=== PATIENT | female | born 1965 ===

== ENCOUNTER 2017-07-31 13:17 | Emergency (ER) | payer BC ==
[2017-07-31 14:39] VITALS: BP 141/81
--- NOTE | 2017-07-31 15:11 | UC ---
Complaint Female HPI - HPI Summary HPI Summary: ONE DAY OF URINARY FREQUENCY, URGENCY, DISCOMFORT. NO FEVER. NO NEW BACK PAIN. NO ABDOMINAL PAIN. - History Of Current Complaint Chief Complaint: UCGU Stated Complaint: URINARY Time Seen by Provider: 07/31/17 14:50 Hx Obtained From: Patient Onset/Duration: Gradual Onset, Lasting Days Timing: Intermittent Severity Initially: Moderate Severity Currently: Moderate Character: Dull, Burning Aggravating Factor(s): Urination Associated Signs And Symptoms: Positive: Negative - Risk Factors Ectopic Risk Factor: Negative - Allergies/Home Medications Allergies/Adverse Reactions: Allergies Allergy/AdvReac Type Severity Reaction Status Date / Time Ibuprofen [From Motrin] Allergy SEVERE Verified 07/31/17 14:30 HEADACHE, VOMITING Morphine Allergy SEVERE Verified 07/31/17 14:30 HEADACHE, VOMITING Sulfa Antibiotics Allergy SEVERE Verified 07/31/17 14:30 HEADACHE, VOMITING PMH/Surg Hx/FS Hx/Imm Hx Previously Healthy: Yes - Surgical History Surgical History: Yes Surgery Procedure, Year, and Place: 1981 WISDOM TEETH EXTRACTION, [facility]. 1994 C SECTION, [facility]. 1995 LAPAROSCOPIC CHOLECYSTECTOMY, [facility]. 2006,2008, 210, VARICOSE VEIN SURGERY. 2012 BILATERAL VARICOSE VEIN SURGERY, [facility]. 2010 ENDOMETRIAL ABLATION, [facility]. 2014 COLONOSCOPY, [facility] - Family History Known Family History: Positive: Unknown Negative: Renal Disease - Social History Occupation: Employed Full-time Lives: With Family Alcohol Use: None Substance Use Type: None Smoking Status (MU): Never Smoked Tobacco - Immunization History Most Recent Influenza Vaccination: allergic to flu shot Hx Tetanus, Diphtheria Vaccination: Yes Vaccination Up to Date: Yes Review of Systems Constitutional: Negative Skin: Negative Eyes: Negative ENT: Negative Respiratory: Negative Cardiovascular: Negative Gastrointestinal: Negative Genitourinary: Dysuria, Hematuria, Frequency Motor: Negative Neurovascular: Negative Musculoskeletal: Negative Neurological: Negative Psychological: Negative Is Patient Immunocompromised?: No All Other Systems Reviewed And Are Negative: Yes Physical Exam Triage Information Reviewed: Yes Appearance: Well-Appearing, No Pain Distress, Well-Nourished Vital Signs: Initial Vital Signs Temp 98.3 F 07/31/17 14:33 Pulse 91 07/31/17 14:33 Resp 16 07/31/17 14:33 BP 141/81 07/31/17 14:33 Pulse Ox 100 07/31/17 14:33 Vital Signs Reviewed: Yes Eye Exam: Normal ENT Exam: Normal ENT: Positive: Normal ENT inspection Dental Exam: Normal Neck exam: Normal Neck: Positive: Supple, Nontender, No Lymphadenopathy Respiratory Exam: Normal Respiratory: Positive: Chest non-tender, Lungs clear, Normal breath sounds, No respiratory distress, No accessory muscle use Cardiovascular Exam: Normal Cardiovascular: Positive: RRR, No Murmur, Pulses Normal, Brisk Capillary Refill Abdominal Exam: Normal Abdomen Description: Positive: Nontender, No Organomegaly. Negative: CVA Tenderness (R), CVA Tenderness (L) Musculoskeletal Exam: Normal Neurological Exam: Normal Psychological Exam: Normal Skin Exam: Normal Complaint Female Dx - Differential Dx/Diagnosis Differential Diagnosis/HQI/PQRI: Sexually Transmitted Disease, Urinary Tract Infection Provider Diagnoses: URINARY TRACT INFECTION Discharge - Discharge Plan Condition: Stable Disposition: HOME Prescriptions: Cephalexin CAP* [Keflex CAP*] 500 mg PO TID #15 cap Fluconazole [Diflucan 150 MG (NF)] 150 mg PO ONCE #1 tab Phenazopyridine TAB* [Pyridium 100 mg TAB*] 100 mg PO TID PRN #15 tab PRN Reason: Pain Patient Education Materials: Urinary Tract Infection in Women (ED) Referrals: Amparo Ortiz MD [Primary Care Provider] -
--- OUTSIDE RECORDS SUMMARY | 2017-07-31 16:11 | XMS REPORT | Continuity of Care Document ---
:1965 Author Organization [facility] Care Team Providers Name Role Phone ZONIA VASQUEZ MD Primary Care Physician [phone] Insurance Providers Payer Name Policy Number Subscriber Name Relationship BLUE PPO [id number] DEBO SUAREZ SELF Problems No problem information available. Medications Current Home Medications Medication Dose Units Route Directions Days/Qty Instructions Start Date MARIANA Fluticasone Nasal Corea (Flonase) 0.05 MG/Actuation SPR Hydrochlorothiazide 25 MG ORAL ONCE DAILY (Esidrex,Oretic,Hydrodiur il) 25 MG TAB Hydrochlorothiazide (Hydrodiuril) 25 MG TAB Lisinopril (Prinivil) 10 10 MG ORAL ONCE DAILY MG TABLET Social History Problem Response Recorded Date Other substance/drug use N 07/31/17 Tobacco use within the past 12 months? N 02/28/11 Alcohol amt N 02/28/11 Hospital Discharge Instructions No hospital discharge instructions. Plan of Care No plan of care. Functional Status Query Response Date Recorded Do you get in and out of a chair: Independently February 28, 2011 1:11pm Do you bathe/dress: Independently February 28, 2011 1:11pm Adaptive devices: None February 28, 2011 1:11pm Living situation: Home with family February 28, 2011 1:11pm Allergies, Adverse Reactions, Alerts Allergen Type Severity Reaction Status Last Updated NSAIDS (Non-Steroidal Allergy Intermediate VOMITING, MIGRAINE Active 02/28 Anti-Inflamma Sulfa (Sulfonamide Allergy Intermediate VOMITING Active 02/28/11 Antibiotics) morphine AdvReac Intermediate VOMITING, MIGRAINE Active 02/28/11 ibuprofen AdvReac Unknown Active 02/26/07 ALLERGIES/REACTION Allergy Unknown Active 09/16/08 Immunizations Name Date Given Type Last Tetanus N/A Historical Vital Signs No Known Vital Signs Results. Results No known relevant diagnostic tests, laboratory data and/or discharge summary. Procedures No Known History of Procedures. Encounters Encounter Location Arrival/Admit Date Discharge/Depart Date Attending Provider Discharged Julian 07/09/17 4:00pm 07/30/[address] [facility] Discharged Julian 06/08/17 8:02am 06/30/[address] [facility]
== END 2017-07-31 15:14 | disposition home or self-care (01) ==
LOC: UCCORT 13:17
DX: N39.0 Urinary tract infection, site not specified (principal); B96.20 Unspecified Escherichia coli [E. coli] as the cause of diseases classified elsewhere; R31.9 Hematuria, unspecified; Z88.6 Allergy status to analgesic agent; Z88.5 Allergy status to narcotic agent; Z88.2 Allergy status to sulfonamides
CPT/HCPCS: 81003; 87077; 87086; 87186; 99212; G0463

== ENCOUNTER 2019-07-09 18:34 | Emergency (ER) | payer BC ==
--- OUTSIDE RECORDS SUMMARY | 2019-07-09 19:10 | XMS REPORT | Continuity of Care Document ---
:1965 External Reference #:[id number] Author Name Elidia Gavin MD, PHD Address [address] [facility], [address] [place] [address] Care Team Providers Name Role Phone Elidia Gavin MD, PHD - Family Care Team Information [facility] Problems Active Problems Provider Date Varicose veins of lower extremity Shanthi Blankenship MD Onset: 09/14/2012 Benign essential hypertension Shanthi Blankenship MD Onset: 09/10/2011 Hyperlipidemia Isabel Ngo, [facility] Onset: 02/24/2017 Localized, primary osteoarthritis Amparo Ortiz MD Onset: 03/23/2017 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/2017 region with myelopathy Obesity Amparo Ortiz MD Onset: 12/21/2017 Degeneration of lumbar intervertebral disc Elidia Gavin MD, PHD Onset: Snapping thumb syndrome Elidia Gavin MD, PHD Onset: 09/01/2018 Malaise and fatigue Elidia Gavin MD, PHD Onset: 10/19/2018 Chest pain Elidia Gavin MD, PHD Onset: 10/19/2018 Irritable bowel syndrome with diarrhea Elidia Gavin MD, PHD Onset: 2018 Right upper quadrant pain Elidia Gavin MD, PHD Onset: 01/21/2019 Migraine Elidia Gavin MD, PHD Onset: 01/21/2019 Polycystic ovary syndrome Elidia Gavin MD, PHD Onset: 02/21/2019 Postconcussion syndrome Elidia Gavin MD, PHD Onset: 02/21/2019 Encounter for examination and observation Elidia Gavin MD, PHD Onset: following work accident Nervous system symptoms Elidia Gavin MD, PHD Onset: 03/23/2019 Abnormal gait Elidia Gavin MD, PHD Onset: 03/23/2019 Fall on same level from slipping, tripping Elidia Gavin MD, PHD Onset: and stumbling with subsequent striking against unspecified object, subsequent encounter Neck pain Elidia Gavin MD, PHD Onset: 06/23/2019 Resolved Problems Neoplastic disease of uncertain behavior Elidia Gavin MD, PHD Onset: Resolved: 06/16/2019 Open wound of head without complication Elidia Gavin MD, PHD Onset: 02/21 Resolved: 06/16/2019 Social History Type Date Description Comments Sex Unknown Tobacco Use Start: Unknown Never Smoked Cigarettes ETOH Use Denies alcohol use Tobacco Use Start: Unknown Patient denies history of smoking Recreational Drug Use Denies Drug Use Smoking Status Reviewed: 06/20/19 Patient denies history of smoking Allergies, Adverse Reactions, Alerts Active Allergies Reaction Severity Comments Date Sulfa Drugs 03/16/2014 Morphine 03/16/2014 Ibuprofen headache 03/16/2014 Metronidazole rash Mild \\ 03/15/2018 Influenza B Virus Vaccine makes her ill 06/16/2019 B/[place]/ Antigen / Influenza Virus Vaccine, Live Attenuated, [id number] (H1N1) Strain / Influenza Virus Vaccine, Live Attenuated, [id number] (H3N2) Strain Lisinopril Cough, Diarrhea 06/16/2019 Medications Active Medications SIG Qnty Indications Ordering Date Provider Montelukast Sodium 1 tab by mouth 30tabs Leslye, 06/23/2019 10mg every day at MD Elidia, Tablets bedtime as needed PHD for allergies Methocarbamol 1 tabs by mouth 30tabs M54.2 Leslye, 06/23/2019 500mg at bedtime as MD Elidia, Tablets needed for muscle PHD spasm Nac 600 1 cap by mouth 90caps F41.9 Leslye, 06/16/2019 600mg Capsules three times a day MD Elidia, after meals PHD Spironolactone Take 1 Tablet By 90tabs I10 Leslye 05/24/2019 25mg Mouth Every MD Elidia, Tablets Morning PHD Fluticasone Propionate Shake Liquid And 48units Leslye, 05/05/2019 Use 1 [place] In MD Elidia, 50mcg/Act Suspension Each Nostril PHD Daily Co Q-10 Maximum 1 caps by mouth 90caps G43.909 Leslye, 04/25/2019 Strength every day MD Elidia, 400mg Capsules PHD Propranolol HCL ER 1 tab by mouth 180caps I10 Leslye, 01/21/2019 60mg twice a day MD Elidia, Caps ER 24HR PHD G43.909 K58.0 Desloratadine 1 by mouth every 90tabs Elidia Gavin MD, 11/05/2016 5mg Tablets day PHD Milk Thistle Extract 1 qd Shanthi Blankenship, 09/25/2014 140mg MD Capsules Carnislim 250 MG 1 tab po daily Unknown Ultimate Hair Strength 2 tab po hs Unknown [employer] Wellness 1 tab by mouth Unknown twice a day Excedrin Migraine prn Unknown [phone] Tablets Aspirin 1 by mouth every Unknown 325mg Tablets DR day [place] 3 2 by mouth every Unknown 1200mg Capsules day Potassium Chloride Jane ER Take 1/2 Tablet By 45tabs Elidia Gavin MD, 10Meq Mouth Every Day. PHD Tablets ER Maximum Daily Dose Is 1/2 Diosimn twice a day Shanthi Blankenship, Multi For Her 2 po qd Shanthi Blankenship, Capsules History Medications Meloxicam Take 1/2 Tablet 90tabs Ashia Swenson, 06/08/2019 - 15mg Tablets By Mouth Every MD 06/16/2019 Day With Food. If No Stomach Upset, Increase To 1 Tablet Every Day Magnesium Gluconate 1 tab by mouth 90tabs G43.909 Lselye, 04/25/2019 - every day MD Elidia, 05/17/2019 500mg Tablets PHD Amitriptyline HCL 1 tab by mouth 30tabs G43.909 Leslye, 04/25/2019 - 10mg every day MD Elidia, Unknown Tablets PHD Dulcolax 4 tablets taken a 4tabs Z86.010 Cande, 03/22/2019 - 5mg Tablets DR 8pm the day MD Arnaldo 04/25/2019 before the procedure Citroma drink 1 bottle at 296ml Z86.010 Cande, 03/22/2019 - 1.745GM/30ML 12pm (noon)the MD Arnaldo 04/25/2019 Solution day before the procedure Suprep Bowel Prep Kit one bottle at 354ml Z86.010 Cande, 03/22/2019 - night and one in MD Arnaldo 04/25/2019 17.5-3.13-1.6GM/177ML the morning Solution Augmented thin layer to 50gm L30.9 Leslye, 01/21/2019 - Betamethasone itchy areas twice MD Elidia, 02/18/2019 Dipropionate a day PHD 0.05% Cream Medications Administered in Office Medication SIG Qnty Indications Ordering Provider Date Depomedrol 40mg/1cc Isabel Ngo, 06/08/2019 (methylprednisolone acetate) RPAC Injection Betamethasone Acetate & Sodium Isabel Ngo SAdrian, 05/10/2019 Phosphate 3 MG Of Each RPAC Injection Depomedrol 40mg/1cc Isabel Ngo, 02/18/2019 (methylprednisolone acetate) RPAC Injection Depomedrol 40mg/1cc Isabel Ngo, 02/18/2019 (methylprednisolone acetate) RPAC Injection Depomedrol 40mg/1cc Isabel Ngo, 02/18/2019 (methylprednisolone acetate) RPAC Injection Depomedrol 40mg/1cc Isabel Ngo SAdrian, 02/18/2019 (methylprednisolone acetate) RPAC Injection Methylprednisolone acetate Isabel Ngo, 11/16/2018 (Depomedrol) 80mg injection RPAC Injection Betamethasone Acetate & Sodium Isabel Ngo, 09/15/2018 Phosphate 3 MG Of Each RPAC Injection Methylprednisolone acetate Isabel Ngo, 07/21/2018 (Depomedrol) 80mg injection RPAC Injection Depomedrol 40mg/1cc Isabel Ngo, 07/21/2018 (methylprednisolone acetate) RPAC Injection Methylprednisolone acetate Isabel Ngo, 04/19/2018 (Depomedrol) 80mg injection RPAC Injection Depomedrol 40mg/1cc Isabel Ngo, 04/19/2018 (methylprednisolone acetate) RPAC Injection Methylprednisolone acetate Isabel Ngo, 12/22/2017 (Depomedrol) 80mg injection RPAC Injection Depomedrol 40mg/1cc Isabel Ngo, 12/22/2017 (methylprednisolone acetate) RPAC Injection Methylprednisolone acetate Isabel Ngo, 09/25/2017 (Depomedrol) 80mg injection RPAC Injection Depomedrol 40mg/1cc Isaebl Ngo, 07/07/2017 (methylprednisolone acetate) RPAC Injection Depo-Medrol 20mg Isabel Ngo, 07/07/2017 Injection RPAC Methylprednisolone acetate Isabel Ngo, 05/27/2017 (Depomedrol) 80mg injection RPAC Injection Methylprednisolone acetate Isabel Ngo, 03/10/2017 (Depomedrol) 80mg injection RPAC Injection Methylprednisolone acetate Isabel Ngo, 02/24/2017 (Depomedrol) 80mg injection RPAC Injection Immunizations CPT Code Status Date Vaccine Lot # [id number] Given 12/21/2017 Tdap injection [id number] Given 09/19/2013 flu vaccination 21183 Given 05/01/2009 flu vaccination 52387 Given 07/10/2008 flu vaccination 42516 Given 06/29/2007 flu vaccination Vital Signs Date Vital Result Comment 06/23/2019 12:53pm BP Systolic 145 mmHg BP Diastolic 91 mmHg Body Temperature 98.3 F Heart Rate 77 /min Respiratory Rate 18 /min Height 62.5 inches 5'2.50" Weight 230.00 lb BMI (Body Mass Index) 41.4 kg/m2 BSA (Body Surface Area) 2.04 m2 [place] body weight in kilograms 51 kg O2 % BldC Oximetry 97 % 06/16/2019 2:09pm BP Systolic 160 mmHg BP Diastolic 95 mmHg Body Temperature 98.1 F Heart Rate 75 /min Respiratory Rate 16 /min Height 62.5 inches 5'2.50" Weight 231.00 lb BMI (Body Mass Index) 41.6 kg/m2 BSA (Body Surface Area) 2.04 m2 [place] body weight in kilograms 51 kg O2 % BldC Oximetry 97 % Results Test Date Facility Test Result H/L Range Note Laboratory test 04/02/2019 [facility] Sedimentation Rate 48 mm/hr High 2-45 1 , 2 finding [address] [place], [place] [address] [phone] C-Reactive Protein,Quant 4.3 mg/L High <3.0 Stool Fecal Fat QL 04/02/2019 [facility] Fats, Neutral Normal . 3 [address] [place], [place] [id number] [phone] Fats, Total Normal . 4 Stool Panel 04/02/2019 [facility] O&P Ova & Parasite Exam <pending> [address] [place] [address] [phone] C. Difficile Toxin B by PCR NEGATIVE Negative 5 Laboratory test 04/02/2019 [facility] Pancreatic 490.0 ug/g >200 6 finding [address] [facility] Elastase (Pe-1) [place], [place] [id number] [phone] Calprotectin, Fecal < 16 ug/g 0-120 7 Amylase 50 U/L Normal 25-115 Lipase 81 U/L Normal 56-289 Enteric 04/02/2019 [facility] Campylobacter SP NEGATIVE Negative Pathogens [address] [facility] PCR Panel, [place] [address] [phone] E. coli Stec PCR NEGATIVE Negative 8 Shigella Sp. PCR NEGATIVE Negative Salmonella Sp. PCR NEGATIVE Negative 9 Ova And 04/02/2019 [facility] Cryptosporidium, PCR NEGATIVE Negative Parasite [address] [facility] Screen, [place] [address] [phone] Giardia PCR NEGATIVE Negative 10 IBD Expanded Panel 04/02/2019 [facility] Julianna 23 units 0-[address] [place] [address] [phone] Acca 23 units 0-90 12 Alca 4 units 0-60 13 Amca 12 units 0-100 14 Atypical pANCA (IBD Exanded) Negative Negative Comments (IBD Expanded) . 15 1 R19.4 2 This result was obtained with an ESR method that is not based on the standard Westergren Method. When comparing results obtained from the traditional Westergren ESR and this method it is important to refer to the reference range for each method. Method: Capillary Photometry 3 Normal (<60 Droplets/HPF) 4 Normal (<100 Droplets/HPF) 5 A positive C. diff result does not necessarily indicate the presence of viable organisms. It does however indicate the presence of the tcdB gene and allows for presumptive detection of a Clostridium difficile toxigenic organism. As with all PCR-based in vitro diagnostic tests, extremely low levels of DNA below the limit of detection of the assay may produce a false negative result. METHOD: PCR 6 INFCE Result Units: ug Elast./g Severe Pancreatic Insufficiency: <100 Moderate Pancreatic Insufficiency: 100 - 200 Normal: >200 7 Concentration Interpretation Follow-Up <16 - 50 ug/g Normal None >50 -120 ug/g Borderline Re-evaluate in 4-6 weeks >120 ug/g Abnormal Repeat as clinically indicated Performed at: [address] [id number] [employer]: Martha Vincent MD, Phone: [phone] Performed at: [address] [id number] [employer]: Brandi Lamas MD, Phone: [phone] Shiga-toxin producing E. coli (STEC). 9 A positive result does not necessarily indicate the presence of viable organism. It does however, indicate the presence of DNA from Campylobacter sp., Salmonella sp., Shigella sp. and/or shiga toxin producing E. coli (STEC). Yersinia, Vibrio, Aeromonas and Plesiomonas are not routinely screened for and should be requested separately. Assay Limitations This assay detects only Campylobacter jejuni and Campylobacter coli and does not differentiate between the species. Other campylobacter species are not detected by the assay. The assay does not distinguish which Shiga toxin gene (stx1/stx2) is present in a specimen. The assay does not differentiate between Shigella sp., and enteroinvasive Escherichia coli (EIEC). As with all PCR-based in vitro diagnostic tests, extremely low levels of DNA below the analytical sensitivity of the assay may produce a false negative result. METHOD: PCR 10 NOTE: A positive result does not necessarily indicate the presence of viable organisms. It does however, indicate the presence of DNA from G. lamblia, C. parvum, C. hominis. This assay is intended to detect DNA from C. hominis and C. parvum without distinguishing between these two species. This test is not intended to detect DNA from other species of Cryptosporidium. As with all PCR-based in vitro diagnostic tests, levels of DNA present may be below the analytical sensitivity of the assay and therefore cause a false negative result. Method: PCR 11 Negative <45 Equivocal 45 - 50 Positive >50 12 Negative <80 Equivocal 80 - 90 Positive >90 13 Negative <55 Equivocal 55 - 60 Positive >60 14 Negative < 90 Equivocal 90 - 100 Positive >100 This test was developed and its performance characteristics determined by [employer]. It has not been cleared or approved by the Food and Drug Administration. The FDA has determined that such clearance or approval is not necessary. 15 Pattern is not suggestive of Inflammatory Bowel Disease Procedures Date Code Description Status 06/08/2019 20334 Radiology, Finger(S), Two Views Completed 06/08/2019 74048 Radiology, Finger(S), Two Views Completed 06/08/201956291 Asp./Injection major joint Completed 05/10/2019 Asp/Injection small joint/bursa (ie-fingers,toes) Completed 04/20/2019 77577 Colonoscopy With Biopsy Completed 04/20/2019 83090 Colonoscopy With Biopsy Completed 04/20/2019 36586 EGD With Biopsy Completed 04/20/2019 66716 EGD With Biopsy Completed 03/24/2019 08642 Eye Exam New Patient Comprehensive Completed 03/22/2019 95384 Anoscopy Completed 02/18/2019 74620 Radiology, Knee 3 Views Completed 02/18/2019 76262 Radiology, Knee 3 Views Completed 02/18/2019 79979 Radiology, Knee 3 Views Completed 02/18/201965032 Asp./Injection major joint Completed 02/18/201916530 Asp./Injection major joint Completed 02/18/201939091 Asp./Injection major joint Completed 01/21/2019 90397 Destruct-Skin Tags/Lesions-Local Anesthesia - First Completed Lesion 12/21/2017 [id number] Mammogram Completed 05/11/2014 65107475 Colonoscopy Completed Medical Devices Description No Information Available Encounters Type Date Location Provider Dx Diagnosis Office Visit 06/23/2019 Family Medicine Elidia Gavin, Z04.2 Encounter for exam 1:00p Kirk Tripathi MD, PHD and observation following work accident F07.81 Postconcussional syndrome W01.10xD Fall same lev from slip/trip w strike agnst unsp obj, subs M54.2 Cervicalgia M25.562 Pain in left knee M25.561 Pain in right knee Office Visit 06/16/2019 Family Fartun Gavin, F41.9 Anxiety disorder, 2:15p Kirk Brenner MD, unspecified PHD Office Visit 06/08/2019 Orthopaedic Ngo, M17.0 Bilateral primary 1:15p Office Isabel S., osteoarthritis of RPAC knee M25.561 Pain in right knee M25.562 Pain in left knee M25.541 Pain in joints of right hand M25.542 Pain in joints of left hand M18.0 Bilateral primary osteoarth of first carpometacarp joints Office Visit 05/24/2019 1:00p Family Fartun Gavin Z04.2 Encounter for exam Kirk Brenner MD, and observation PHD following work accident F07.81 Postconcussional syndrome M25.562 Pain in left knee M25.561 Pain in right knee W01.10xD Fall same lev from slip/trip w strike agnst unsp obj, subs I10 Essential (primary) hypertension Office Visit 05/17/2019 10:45a Arnaldo Allen MD R19.4 Change in bowel habit Z86.010 Personal history of colonic polyps R93.3 Abnormal findings on dx imaging of prt digestive tract Office Visit 04/25/2019 8:30a Family Fartun Gavin Z04.2 Encounter for exam Kirk Brenner MD, and observation PHD following work accident Z04.2 Encounter for exam and observation following work accident F07.81 Postconcussional syndrome F07.81 Postconcussional syndrome M25.562 Pain in left knee M25.562 Pain in left knee M25.561 Pain in right knee M25.561 Pain in right knee S01.91xA Laceration w/o foreign body of unsp part of head, init R19.4 Change in bowel habit G43.909 Migraine, unsp, not intractable, without status migrainosus E66.9 Obesity, unspecified M51.06 Intervertebral disc disorders with myelopathy, lumbar region M25.562 Pain in left knee G43.909 Migraine, unsp, not intractable, without status migrainosus Office Visit 03/23/2019 9:30a Lyly Pino04.2 Encounter for exam Kirk Brenner MD, and observation PHD following work accident Z04.2 Encounter for exam and observation following work accident F07.81 Postconcussional syndrome F07.81 Postconcussional syndrome W01.10xD Fall same lev from slip/trip w strike agnst unsp obj, subs W01.10xD Fall same lev from slip/trip w strike agnst unsp obj, subs R29.6 Repeated falls R29.6 Repeated falls I10 Essential (primary) hypertension K58.0 Irritable bowel syndrome with diarrhea R26.89 Other abnormalities of gait and mobility Office Visit 03/22/2019 8:45a GI Arnaldo Castellon MD R10.31 Right lower quadrant pain R10.32 Left lower quadrant pain R19.4 Change in bowel habit K64.0 First degree hemorrhoids Z86.010 Personal history of colonic polyps Office Visit 02/21/2019 9:30a Family Medicine Lyly Gavin04.2 Encounter for exam Kirk Brenner MD, and observation PHD following work accident Z04.2 Encounter for exam and observation following work accident S01.91xA Laceration w/o foreign body of unsp part of head, init S01.91xA Laceration w/o foreign body of unsp part of head, init F07.81 Postconcussional syndrome F07.81 Postconcussional syndrome I10 Essential (primary) hypertension I10 Essential (primary) hypertension Office Visit 01/21/2019 3:00p Family Medicine Leslye, 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 Brenner MD, uncertain PHD behavior, unspecified K58.0 Irritable bowel syndrome with diarrhea R10.11 Right upper quadrant pain I10 Essential (primary) hypertension G43.909 Migraine, unsp, not intractable, without status migrainosus L30.9 Dermatitis, unspecified Assessments Date Code Description Provider 06/23/2019 Z04.2 Encounter for examination and Elidia Gavin MD, PHD observation following work accident 06/23/2019 F07.81 Postconcussional syndrome Elidia Gavin MD, PHD 06/23/2019 W01.10xD Fall on same level from slipping, Elidia Gavin MD, PHD tripping and stumbling with subsequent striking against unspecified object, subsequent encounter 06/23/2019 M54.2 Cervicalgia Elidia Gavin MD, PHD 06/23/2019 M25.562 Pain in left knee Elidia Gavin MD, PHD 06/23/2019 M25.561 Pain in right knee Elidia Gavin MD, PHD 06/16/2019 F41.9 Anxiety disorder, unspecified Cuca Gasca, [facility] 06/16/2019 F41.9 Anxiety disorder, unspecified Elidia Gavin MD, PHD 06/08/2019 M17.0 Bilateral primary osteoarthritis of knee Ngo, Isabel S. , [facility] 06/08/2019 M25.561 Pain in right knee Ngo, Isabel S., [facility] 06/08/2019 M25.562 Pain in left knee Ngo, Isabel S., [facility] 06/08/2019 M25.541 Pain in joints of right hand Ngo, Isabel S., [facility] 06/08/2019 M25.542 Pain in joints of left hand Ngo, Isabel S., [facility] 06/08/2019 M18.0 Bilateral primary osteoarthritis of Ngo, Isabel S., [facility] first carpometacarpal joints 05/24/2019 Z04.2 Encounter for examination and Elidia Gavin MD, PHD observation following work accident 05/24/2019 F07.81 Postconcussional syndrome Elidia Gavin MD, PHD 05/24/2019 M25.562 Pain in left knee Elidia Gavin MD, PHD 05/24/2019 M25.561 Pain in right knee Elidia Gavin MD, PHD 05/24/2019 W01.10xD Fall on same level from slipping, Elidia Gavin MD, PHD tripping and stumbling with subsequent striking against unspecified object, subsequent encounter 05/24/2019 I10 Essential (primary) hypertension Elidia Gavin MD, PHD 05/17/2019 R19.4 Change in bowel habit Arnaldo Castellon MD 05/17/2019 Z86.010 Personal history of colonic polyps Arnaldo Castellon MD 05/17/2019 R93.3 Abnormal findings on diagnostic imaging Arnaldo Castellon MD of other parts of digestive tract 05/10/2019 M18.11 Unilateral primary osteoarthritis of Isabel Ngo, [facility] first carpometacarpal j 04/25/2019 Z04.2 Encounter for examination and Elidia Gavin MD, PHD observation following work accident 04/25/2019 Z04.2 Encounter for examination and Elidia Gavin MD, PHD observation following work accident 04/25/2019 F07.81 Postconcussional syndrome Elidia Gavin MD, PHD 04/25/2019 F07.81 Postconcussional syndrome Elidia Gavin MD, PHD 04/25/2019 M25.562 Pain in left knee Elidia Gavin MD, PHD 04/25/2019 M25.562 Pain in left knee Elidia Gavin MD, PHD 04/25/2019 M25.561 Pain in right knee Elidia Gavin MD, PHD 04/25/2019 M25.561 Pain in right knee Elidia Gavin MD, PHD 04/25/2019 S01.91xA Laceration without foreign body of Elidia Gavin MD, PHD unspecified part of head, 04/25/2019 R19.4 Change in bowel habit Elidia Gavin MD, PHD 04/25/2019 G43.909 Migraine, unspecified, not intractable, Elidia Gavin MD, PHD without status migra 04/25/2019 E66.9 Obesity, unspecified Elidia Gavin MD, PHD 04/25/2019 M51.06 Intervertebral disc disorders with Elidia Gavin MD, PHD myelopathy, lumbar region 04/25/2019 M25.562 Pain in left knee Elidia Gavin MD, PHD 04/25/2019 G43.909 Migraine, unspecified, not intractable, Elidia Gavin MD, PHD without status migrainosus 04/20/2019 K21.9 Gastro-esophageal reflux disease without Arnaldo Castellon MD esophagitis 04/20/2019 K57.30 Diverticulosis of large intestine Arnaldo Castellon MD without perforation or abscess without bleeding 04/20/2019 K31.7 Polyp of stomach and duodenum Arnaldo Castellon MD 04/20/2019 Z86.010 Personal history of colonic polyps Arnaldo Castellon MD 03/24/2019 F07.81 Postconcussional syndrome Arnaldo Loyd MD 03/24/2019 H04.123 Dry eye syndrome of bilateral lacrimal Arnaldo Loyd MD glands 03/23/2019 Z04.2 Encounter for examination and Elidia Gavin MD, PHD observation following work accident 03/23/2019 Z04.2 Encounter for examination and Elidia Gavin MD, PHD observation following work accident 03/23/2019 F07.81 Postconcussional syndrome Elidia Gavin MD, PHD 03/23/2019 F07.81 Postconcussional syndrome Elidia Gavin MD, PHD 03/23/2019 W01.10xD Fall on same level from slipping, Elidia Gavin MD, PHD tripping and stumbling with subsequent striking against unspecified object, subsequent encounter 03/23/2019 W01.10xD Fall on same level from slipping, Elidia Gavin MD, PHD tripping and stumbling with subsequent striking against unspecified object, subsequent encounter 03/23/2019 R29.6 Repeated falls Elidia Gavin MD, PHD 03/23/2019 R29.6 Repeated falls Elidia Gavin MD, PHD 03/23/2019 I10 Essential (primary) hypertension Elidia Gavin MD, PHD 03/23/2019 K58.0 Irritable bowel syndrome with diarrhea Elidia Gavin MD , PHD 03/23/2019 R26.89 Other abnormalities of gait and mobility Elidia Gavin MD, PHD 03/22/2019 R10.31 Right lower quadrant pain Arnaldo Castellon MD 03/22/2019 R10.32 Left lower quadrant pain Arnaldo Castellon MD 03/22/2019 R19.4 Change in bowel habit Arnaldo Castellon MD 03/22/2019 K64.0 First degree hemorrhoids Arnaldo Castellon MD 03/22/2019 Z86.010 Personal history of colonic polyps Arnaldo Castellon MD 02/21/2019 Z04.2 Encounter for examination and Elidia Gavin MD, PHD observation following work accident 02/21/2019 Z04.2 Encounter for examination and Elidia Gavin MD, PHD observation following work accident 02/21/2019 S01.91xA Laceration without foreign body of Elidia Gavin MD, PHD unspecified part of head, initial encounter 02/21/2019 S01.91xA Laceration without foreign body of Elidia Gavin MD, PHD unspecified part of head, 02/21/2019 F07.81 Postconcussional syndrome Elidia Gavin MD, PHD 02/21/2019 F07.81 Postconcussional syndrome Elidia Gavin MD, PHD 02/21/2019 I10 Essential (primary) hypertension Elidia Gavin MD, PHD 02/21/2019 I10 Essential (primary) hypertension Elidia Gavin MD, PHD 02/18/2019 M25.561 Pain in right knee Ashia Swenson MD 02/18/2019 M25.561 Pain in right knee Ngo, Isabel S., [facility] 02/18/2019 M25.561 Pain in right knee Ngo, Isabel S., [facility] 02/18/2019 M25.562 Pain in left knee Ngo, Isabel S., [facility] 02/18/2019 M25.562 Pain in left knee Ngo, Isabel S., [facility] 02/18/2019 M17.0 Bilateral primary osteoarthritis of knee Ngo, Isabel S. , [facility] 02/18/2019 M17.0 Bilateral primary osteoarthritis of knee Ngo, Isabel S. 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, Elidia Gavin MD, PHD unspecified 01/21/2019 K58.0 Irritable bowel syndrome with diarrhea Elidia Gavin MD , PHD 01/21/2019 R10.11 Right upper quadrant pain Elidia Gavin MD, PHD 01/21/2019 I10 Essential (primary) hypertension Elidia Gavin MD, PHD 01/21/2019 G43.909 Migraine, unspecified, not intractable, Elidia Gavin MD, PHD without status migra 01/21/2019 L30.9 Dermatitis, unspecified Elidia Gavin MD, PHD Plan of Treatment Future Appointment(s):08/22/2019 9:00 am - Isabel Ngo [facility] at Orthopaedic Office Functional Status Functional Condition Comment Date Status Glasses Active Mental Status Description No Information Available Referrals Refer to Reason for Referral Status Appt Date [facility], PT/OT/[facility] Patient Declined [address] [place] [address] [phone] Closed Arnaldo Loyd MD Post-concussion 1 month. Still having headaches. Closed Gets nauseated if reads for 30 min - with old reading glasses. Denies double vision. Please evaluate and recommend treatment. Has not done OT therapy yet. [address] [place] [address] [phone] [facility] @ [facility] Concussion from work comp injury Closed 2018 Medical - continuing daily headaches, face trauma, still nauseated if reads for 30 min, chronic back pain seeing [facility] and [facility]. Neck still sore. [address] [facility] [place] [id number] [phone] [facility] Recent fall at work seems to have Closed 2018 worsened lumbar herniated disk and radiculopathy. [address] [place] [address] [phone] Love Lomax MD pink lesion on face persisting for aprox 1 Closed 2018 year. Hx dermatitis. [facility] [address] [facility] [place] [address] [phone] Arnaldo Castellon MD Persistent RUQ pain and IBS-D - neg for celiac, Closed 03/22/2019 neg for h.pylori, H/o ishmael many years ago. Atopic. Tried eliminating dairy. [address] [facility] [address] [place] [address] [phone]
--- OUTSIDE RECORDS SUMMARY | 2019-07-09 19:10 | XMS REPORT | Continuity of Care Document ---
:1965 External Reference #:[id number] Author Name Elidia Gavin MD, PHD Address [address] [place] [address], [address] [place] [address] Care Team Providers Name Role Phone Elidia Gavin MD, PHD - Family Care Team Information [facility] Problems Active Problems Provider Date Varicose veins of lower extremity Shanthi Blankenship MD Onset: 09/14/2012 Benign essential hypertension Shanthi Blankenship MD Onset: 09/10/2011 Hyperlipidemia Isabel Ngo, [facility] Onset: 02/24/2017 Localized, primary osteoarthritis Amparo Ortiz MD Onset: 03/23/2017 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/2017 region with myelopathy Hypokalemia Amparo Ortiz MD Onset: 03/23/2017 Acute upper respiratory infection, Amparo Ortiz MD Onset: 05/21/2017 unspecified Acute vaginitis Amparo Ortiz MD Onset: 12/21/2017 Obesity Amparo Ortiz MD Onset: 12/21/2017 Right lower quadrant pain Amparo Ortiz MD Onset: 12/21/2017 Degeneration of lumbar intervertebral disc Elidia Gavin MD, PHD Onset: Disorder of gallbladder Elidia Gavin MD, PHD Onset: 03/11/2018 Vaginitis Elidia Gavin MD, PHD Onset: 03/11/2018 Allergic urticaria Elidia Gavin MD, PHD Onset: 05/26/2018 Contact dermatitis Elidia Gavin MD, PHD Onset: 05/26/2018 Snapping thumb syndrome Elidia Gavin MD, PHD Onset: 09/01/2018 Epigastric pain Elidia Gavin MD, PHD Onset: 10/19/2018 Malaise and fatigue Elidia Gavin MD, PHD Onset: 10/19/2018 Chest pain Elidia Gavin MD, PHD Onset: 10/19/2018 Irritable bowel syndrome with diarrhea Elidia Gavin MD, PHD Onset: 2018 Neoplastic disease of uncertain behavior Elidia Gavin MD, PHD Onset: Right upper quadrant pain Elidia Gavin MD, PHD Onset: 01/21/2019 Migraine Elidia Gavin MD, PHD Onset: 01/21/2019 Polycystic ovary syndrome Elidia Gavin MD, PHD Onset: 02/21/2019 Open wound of head without complication Elidia Gavin MD, PHD Onset: 02/21 Postconcussion syndrome Elidia Gavin MD, PHD Onset: 02/21/2019 Encounter for examination and observation Elidia Gavin MD, PHD Onset: following work accident Nervous system symptoms Elidia Gavin MD, PHD Onset: 03/23/2019 Abnormal gait Elidia Gavin MD, PHD Onset: 03/23/2019 Fall on same level from slipping, tripping Elidia Gavin MD, PHD Onset: and stumbling with subsequent striking against unspecified object, subsequent encounter Social History Type Date Description Comments Sex Unknown Tobacco Use Start: Unknown Never Smoked Cigarettes ETOH Use Denies alcohol use Tobacco Use Start: Unknown Patient denies history of smoking Recreational Drug Use Denies Drug Use Smoking Status Reviewed: 05/24/19 Patient denies history of smoking Allergies, Adverse Reactions, Alerts Active Allergies Reaction Severity Comments Date Sulfa Drugs 03/16/2014 Morphine 03/16/2014 Ibuprofen 03/16/2014 Metronidazole rash Mild \\ 03/15/2018 Medications Active Medications SIG Qnty Indications Ordering Date Provider Spironolactone 1 by mouth 30tabs I10 Elidia Gavin, 05/24/2019 25mg Tablets every morning , PHD Fluticasone Propionate Shake Liquid 48units Elidia Gavin, 05/05/2019 And Use 1 [place] MD PHD 50mcg/Act Suspension In Each Nostril Daily Co Q-10 Maximum 1 caps by mouth 90caps G43.909 Elidia Gavin, 04/25/2019 Strength every day , PHD 400mg Capsules Propranolol HCL ER 1 tab by mouth 180caps I10 Elidia Gavin, 01/21/2019 60mg twice a day PHD EFREM Caps ER 24HR G43.909 K58.0 Desloratadine 1 by mouth every 90tabs Elidia Gavin MD, 11/05/2016 5mg Tablets day PHD Milk Thistle Extract 1 qd Shanthi Blankenship, 09/25/2014 140mg MD Capsules Carnislim 250 MG 1 tab po daily Unknown Ultimate Hair Strength 2 tab po hs Unknown Ultimate [employer] [facility] 1 tab by mouth Unknown twice a day Excedrin Migraine prn Unknown [id number] Tablets Aspirin 1 by mouth every Unknown 325mg Tablets DR day Coker 3 2 by mouth every Unknown 1200mg Capsules day Potassium Chloride Jane ER Take 1/2 Tablet By 45tabs Elidia Gavin MD, 10Meq Mouth Every Day. PHD Tablets ER Maximum Daily Dose Is 1/2 Diosimn twice a day Shanthi Blankenship, Multi For Her 2 po qd Shanthi Blankenship, Capsules History Medications Magnesium Gluconate 1 tab by mouth 90tabs G43.909 Leslye, 04/25/2019 - every day MD Elidia, 05/17/2019 [...] Medication SIG Qnty Indications Ordering Provider Date Betamethasone Acetate & Sodium Isabel Ngo SAdrian, 05/10/2019 Phosphate 3 MG Of Each RPAC Injection Depomedrol 40mg/1cc Isabel Ngo S., 02/18/2019 (methylprednisolone acetate) RPAC Injection Depomedrol 40mg/1cc Isabel Ngo S., 02/18/2019 (methylprednisolone acetate) RPAC Injection Depomedrol 40mg/1cc Isabel Ngo S., 02/18/2019 (methylprednisolone acetate) RPAC Injection Depomedrol 40mg/1cc Isabel Ngo SAdrian, 02/18/2019 (methylprednisolone acetate) RPAC Injection Methylprednisolone acetate Isabel Ngo S., 11/16/2018 (Depomedrol) 80mg injection RPAC Injection Betamethasone Acetate & Sodium Isabel Ngo S., 09/15/2018 Phosphate 3 MG Of Each RPAC Injection Methylprednisolone acetate Isabel Ngo S., 07/21/2018 (Depomedrol) 80mg injection RPAC Injection Depomedrol 40mg/1cc Isabel Ngo S., 07/21/2018 (methylprednisolone acetate) RPAC Injection Methylprednisolone acetate Isabel Ngo S., 04/19/2018 (Depomedrol) 80mg injection RPAC Injection Depomedrol 40mg/1cc Isabel Ngo S., 04/19/2018 (methylprednisolone acetate) RPAC Injection Methylprednisolone acetate Isabel Ngo S., 12/22/2017 (Depomedrol) 80mg injection RPAC Injection Depomedrol 40mg/1cc Isabel gNo S., 12/22/2017 (methylprednisolone acetate) RPAC Injection Methylprednisolone acetate Isabel Ngo SAdrian, 09/25/2017 (Depomedrol) 80mg injection RPAC Injection Depomedrol 40mg/1cc NgoIsabel bang, 07/07/2017 (methylprednisolone acetate) RPAC Injection Depo-Medrol 20mg Isabel Ngo., 07/07/2017 Injection RPAC Methylprednisolone acetate NgoIsabel bang, 05/27/2017 (Depomedrol) 80mg injection RPAC Injection Methylprednisolone acetate NgoIsabel bang, 03/10/2017 (Depomedrol) 80mg injection RPAC Injection Methylprednisolone acetate Isabel Ngo, 02/24/2017 (Depomedrol) 80mg injection RPAC Injection Immunizations CPT Code Status Date Vaccine Lot # [id number] Given 12/21/2017 Tdap injection [id number] Given 09/19/2013 flu vaccination 56387 Given 05/01/2009 flu vaccination 23077 Given 07/10/2008 flu vaccination 13033 Given 06/29/2007 flu vaccination Vital Signs Date Vital Result Comment 05/24/2019 12:57pm BP Systolic 151 mmHg BP Diastolic 85 mmHg Body Temperature 98.1 F Heart Rate 62 /min Respiratory Rate 18 /min Height 62.5 inches 5'2.50" Weight 235.00 lb BMI (Body Mass Index) 42.3 kg/m2 BSA (Body Surface Area) 2.06 m2 [place] body weight in kilograms 51 kg O2 % BldC Oximetry 97 % 05/17/2019 11:14am BP Systolic Sitting Left Arm 146 mmHg BP Diastolic Sitting Left Arm 88 mmHg Body Temperature 99.8 F Heart Rate 73 /min Respiratory Rate 16 /min Height 62.5 inches 5'2.50" Weight 232.00 lb BMI (Body Mass Index) 41.8 kg/m2 BSA (Body Surface Area) 2.05 m2 [place] body weight in kilograms 51 kg O2 % BldC Oximetry 97 % Ra Results Test Date Facility Test Result H/L Range Note Laboratory test 04/02/2019 [facility] Sedimentation Rate 48 mm/hr High 2-45 1 , 2 finding [address] [place], [place] [id number] [phone] C-Reactive Protein,Quant 4.3 mg/L High <3.0 Stool Fecal Fat QL 04/02/2019 [facility] Fats, Neutral Normal . 3 [address] [place], [place] [id number] [phone] Fats, Total Normal . 4 Stool Panel 04/02/2019 [facility] O&P Ova & Parasite Exam <pending> [address] [place], [place] [id number] [phone] C. Difficile Toxin B by PCR NEGATIVE Negative 5 Laboratory test 04/02/2019 [facility] Pancreatic 490.0 ug/g >200 [address] Elastase (Pe-1) [place], [place] [address] [phone] Calprotectin, Fecal < 16 ug/g 0-120 7 Amylase 50 U/L Normal 25-115 Lipase 81 U/L Normal 56-289 Enteric 04/02/2019 [facility] Campylobacter SP NEGATIVE Negative Pathogens [address] PCR Panel, [place] [address] [phone] E. coli Stec PCR NEGATIVE Negative 8 Shigella Sp. PCR NEGATIVE Negative Salmonella Sp. PCR NEGATIVE Negative 9 Ova And 04/02/2019 [facility] Cryptosporidium, PCR NEGATIVE Negative Parasite [address] Screen, [place] [address] [phone] Giardia PCR NEGATIVE Negative 10 IBD Expanded Panel 04/02/2019 [facility] Julianna 23 units 0-[address] [place], [place] [address] [phone] Acca 23 units 0-90 12 Alca 4 [...] Abnormal Repeat as clinically indicated Performed at: [address] [id number] Business Manager: Martha Vincent MD, Phone: [phone] Performed at: [address] [id number] Business Manager: Brandi Lamas MD, Phone: [phone] Shiga-toxin producing E. coli (STEC). 9 [...] developed and its performance characteristics determined by [facility]. It has not been cleared or approved by the Food and Drug Administration. The FDA has determined that such clearance or approval is not necessary. 15 Pattern is not suggestive of Inflammatory Bowel Disease Procedures Date Code Description Status 05/10/201977345 Asp/Injection small joint/bursa (ie-fingers,toes) Completed 04/20/2019 13949 Colonoscopy With Biopsy Completed 04/20/2019 64633 Colonoscopy With Biopsy Completed 04/20/2019 80020 EGD With Biopsy Completed 04/20/2019 72914 EGD With Biopsy Completed 03/24/2019 30337 Eye Exam New Patient Comprehensive Completed 03/22/2019 15544 Anoscopy Completed 02/18/2019 32417 Radiology, Knee 3 Views Completed 02/18/2019 59373 Radiology, Knee 3 Views Completed 02/18/201975044 Asp./Injection major joint Completed 02/18/201962981 Asp./Injection major joint Completed 02/18/201955853 Asp./Injection major joint Completed 02/18/201962475 Asp./Injection major joint Completed 01/21/2019 92093 Destruct-Skin Tags/Lesions-Local Anesthesia - First Completed Lesion 12/21/2017 34823054 Mammogram Completed 05/11/2014 65972918 Colonoscopy Completed Medical Devices Description No Information Available Encounters Type Date Location Provider Dx Diagnosis Office Visit 05/17/2019 GI Arnaldo Castellon MD R19.4 Change in bowel habit 10:45a Z86.010 Personal history of colonic polyps R93.3 Abnormal findings on dx imaging of prt digestive tract Office Visit 04/25/2019 8:30a Family Medicine Leslye, Z04.2 Encounter for exam [facility] MD Elidia, and observation PHD following work accident Z04.2 [...] without status migrainosus Office Visit 03/23/2019 9:30a Family Medicine Lyly Gavin04.2 Encounter for [...] Dermatitis, unspecified Assessments Date Code Description Provider 05/24/2019 Z04.2 Encounter for examination and Elidia [...] PHD 05/17/2019 R19.4 Change in bowel habit Arnalod Castellon MD 05/17/2019 Z86.010 Personal history of colonic polyps Arnaldo Castellon MD 05/17/2019 R93.3 Abnormal findings on diagnostic imaging Arnaldo Castellon MD of other parts of digestive tract 05/10/2019 M18.11 Unilateral primary osteoarthritis of Jeni Isabel JeromeAdrian, [facility] first carpometacarpal j 04/25/2019 Z04.2 Encounter [...] PHD 04/25/2019 M25.562 Pain in left knee Eldiia Gavin MD, PHD 04/25/2019 M25.561 Pain in [...] PHD 02/18/2019 M25.561 Pain in right knee Isabel Ngo., [facility] 02/18/2019 M25.561 Pain in right knee NgoIsabel bang S., [facility] 02/18/2019 M25.562 Pain in left knee Isabel Ngo S., [facility] 02/18/2019 M25.562 Pain in left knee Isabel Ngo S., [facility] 02/18/2019 M17.0 Bilateral primary osteoarthritis of knee Isabel Ngo , [facility] 02/18/2019 M17.0 Bilateral primary osteoarthritis of knee Isabel Ngo S. , [facility] 02/18/2019 M17.0 Bilateral primary osteoarthritis of knee Isabel Ngo. 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, [...] Gavin MD, PHD Plan of Treatment Future Appointment(s):06/27/2019 2:15 pm - Arnaldo Loyd MD at [facility]/ 24/2019 - Elidia Gavin MD, PHDZ04.2 Encounter for examination and observation following work liqfuobwS75.81 Postconcussional syndromeReferral:[facility] , PT/OT/OPTICAL SYSTEMS ENGINEER/[address],Follow up:Follow up in 4 weeks or sooner if needed.M25.562 Pain in left kneeM25.561 Pain in right kneeW01.10xD Fall on same level from slipping, tripping and stumbling with subsequent striking against unspecified object, subsequent [id number] Essential (primary) hypertensionNew Medication:Spironolactone 25 mg - 1 by mouth every morningComments:PRESSURE POINTS1 What high blood pressure is. Blood pressure is the force that your blood exerts onthe middleton of the arteries it flows through, just like water flowing through a garden hose pushes against the hose??s middleton. Your blood pressure consists of two numbers. ??Systolic is the pressure on blood vessel middleton during heart beats,?? says José Miguel Carnes, professor of cardiovascular disease prevention at the [employer]. ?? Diastolic is the pressure between beats,?? so it??s lower. When people have high blood pressure??also called hypertension??it??s often because blood vessels are too rigid to expand when the heart pumps. It??s as though the hose were made of glass instead of rubber. 2 Everyone is at risk. Why worry about high blood pressure if you haven??t been diagnosed with it? Because, odds are, you eventually will be. ??Over time, 90 percent of people in this country develop hypertension,?? says Daryl Kim, professor of preventive medicine at the [employer]. That??s because blood pressure typically creeps up as youage. In the Atherosclerosis Risk in Communities study, which followed more than 15,000 Americans aged 45 to 64, average systolic blood pressure kelly by five points in five years.1 ??Blood pressures drift upward as people get older and they??re exposed to long-term excess sodium,?? explains Julio. ??That??s why almost all adults are going to get blood pressures that put them at higher risk for heart disease and stroke.? ? But most hypertension is preventable with a healthy diet and exercise, he adds.3 Your risk starts to rise at any blood pressure above ??normal.?? Doctors used to diagnose patientswith hypertension when their systolic pressure reached NORMAL BLOOD PRESSURE <120/<80 * Recommendations: Healthy lifestyle choices and yearly checks.ELEVATED BLOOD PRESSURE 120-129/<80 * Recommendations: Healthy lifestyle changes, reassessed in 3-6 months.HIGH BLOOD PRESSURE / STAGE 1 130-139/80-89 * Recommendations: 10-year heart disease and stroke risk assessment. If less than 10% risk, lifestyle changes, reassessed in 3-6 months. If higher, lifestyle changes and medication with monthly follow-ups until blood pressure is controlled. HIGH BLOOD PRESSURE / STAGE 2 >140/> 90 * Recommendations: Lifestyle changes and 2 different classes of medicine, with monthly follow-ups until blood pressure is controlled.How much diet and exercise can lower your blood pressure Got high blood pressure? You??re in good company.Nearly half of [place] adults now have hypertension, according to recent guidelines from the [place] [employer] and the [place] [employer].That means that many people who had ??prehypertension?? according to the old guidelines now have ??stage 1 hypertension.?? Most of them don??t need to start taking drugs to lower their pressure (that depends on other risk factors). Instead, the guidelines recommend a healthy lifestyle.Why? Because it works. Here??s how much your systolic pressure (the higher of your two blood pressure numbers) could fall with diet and exercise, according to the new guidelines:1. Eat a DASH diet: 11 pointsDon??t want to count servings?Start by filling half your plate with fruits and vegetables.A DASH-style diet does it all : protects your heart, piles on the fruits and veggies, and cuts unhealthy carbs. It??s not only low in saturated fat, sugar, and salt, it??s also rich in nutrients like potassium, magnesium, calcium, and fiber.Plus, DASH works for omnivores or vegetarians.2. Exercise: 5 pointsAny kind of exercise helps.All formsof exercise will lower blood pressure, but the best evidence is for aerobic activity. Aim for 90 to 150 minutes a week of aerobics (brisk walking, biking, running, etc.) and/or resistance training (biceps curls, leg presses, etc.).If you??re starting with walking, here??s how to ramp up the intensity gradually.3. Lose weight: 5 pointsDropping extra pounds can lower your pressure.Losing excess weight helps lower blood pressure. Expect about a 1 point drop in systolic pressure for every 2 pounds you lose.4. Cut salt: 5 pointsMost sodium comes from packaged and restaurant foods that don??t even taste salty.To lower blood pressure, cut your sodium by 1,000 milligrams a day, ideally to 1,500 mg a day. Start with these seven foods.Bread. About 100 to 200 mg of sodium per slice is typical. [employer] and some other brands make it easy to stay at the low end.Cheese. Most types have 150 to 250 mg ofsodium per ounce. Try [place] Korean (just 40 to 60 mg) or fresh mozzarella (80 to 100 mg) or just 1 ??slim cut?? or ??thin?? slice of your favorite variety.Poultry. The salt solution that??s often added to rawchicken or turkey can add 120 mg of sodium to the poultry??s 80 mg of (naturally occurring) sodium. So avoid poultry with labels like ??Contains up to 15% of a solution.??Deli meats. Just 2 oz. can pile 500 to 700 mg of sodium on your sandwich. Get Boar??s Head??s ( or another brand??s) ??low-sodium?? meats that are sliced at the deli counter ( about 50 to 80 mg in 2 oz.).Soup. Most soups deliver 600 to 900 mg of sodium per cup. Try Imagine, [place], Dr. Ansari??s, Deepti??s Organic, or Brine Tank Separator Operator Marcos?? s ??Light in Sodium?? or ??Reduced Sodium?? soups instead (200 to 400 mg) .Pizza. You can easily get 1,000 mg of sodium in 2 slices. Go light on the cheese, and replace meat with veggies (not olives).Restaurant entre??es. Many pack 1,000 to 2,000 mg of sodium. Save half for later. And add a side salad or other veggies to boost potassium.5. Get more potassium: 4 to 5 pointsAnother reason to eat more vegetables: potassium.The goal: Get 3,500 to 5,000 milligrams of potassium a day. You??ll get the most bang for your calorie potter with fruits and vegetables. Some examples: Calories Potassium (mg):Baked potato with skin (1 small) 130 750 Beet greens (?? cup cooked) 20 650 Yellowfin tuna (4 oz. cooked) [id number] Sweet potato with skin (1 small) 130 540 Wild Coho salmon (4 oz. cooked) 160 490 Spinach (?? cupcooked) 20 420 Banana (1) 110 420 Low-fat plain yogurt (6 oz.) 110 400 Fat-free milk (1 cup) 80 380 Cantaloupe (?? ) 50 370 Lentils (?? cup cooked) 120 370 Kaur beans (?? cup cooked) 120 370 Tomato sauce (?? cup) 30 360 Avocado (?? cup) 120 360 Spinach (2 cups raw) 10 340 Shelled edamame (?? cup cooked) 100 340 [place] or nectarine (1) 60 290 [place] sprouts (?? cup cooked) 30 250 [place] (1) 70 240 Ahsan lettuce (2 cups raw) 10 230 Apple (1) 100 200 6. Limit alcohol: 4 pointsLimiting alcohol helps keep your pressure in check.If you drink, stop at one drink a day for women or two for men.Find this article interesting and useful? Order a copy of Safe & Easy Steps to Lower Your Blood Pressure. Nine out of 10 Americans will eventually have high blood pressure and, with it, an increased risk of stroke, heart attack, diabetes, dementia, and more. Eating the right diet, losing weight, and exercising can keep your pressure under control. And, if you do have hypertension, it can lower your pressureas much as??or more than?? prescription drugs. This booklet, from the editors of [employer], shows you how. (48 pages)Dr. Gavin Can Print this out for you.The information in this post first appeared in [employer] Health[employer] in August 2017.WHAT WORKS? If you have high blood pressure, here??s roughly how much of a drop in systolic pressure you can expect from changes in diet and from exercise.Advice ~ What It Means ~ Typical Drop in Systolic Blood Pressure: Maintain a Normal Weight ~ Lose??or don??t gain??excess weight ~ 5 points for every 10 pounds you lose. Follow a DASH Diet ~ Eat a diet: ?? rich in vegetables & fruits ?? that includes whole grains, low-fat dairy, poultry, fish, beans, nuts, & oils ?? low in sugar & red meat ~ 11 pointsCut Sodium ~ Consume no more than 2,400??milligrams a day (1,500 mg a day lowers pressure even more)~ 5 pointsBoost Potassium ~ Shoot for 3,500 to 5,000 milligrams a day, mostly from fruits and vegetables ~ 4-5 pointsExercise ~ Doat least 30 minutes of aerobic activity (like brisk walking) most days of the week ~ 5 pointsLimitAlcohol ~ Men: No more than 2 drinks a day Women: No more than 1 drink a day ~ 4 points CHRONIC BLOOD PRESSURE IS GETTING WORSE BECAUSE OF WEIGHT GAIN AND PAIN FROM THE FALL AND CONCUSSION. 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 Still having headaches. Closed Gets nauseated if reads for 30 min - with old reading glasses. Denies double vision. Please evaluate and recommend treatment. Has not done OT therapy yet. [address] [place] [address] [phone] [facility] @ [facility] Concussion from work comp injury Closed 2018 Medical - continuing daily headaches, face trauma, still nauseated if reads for 30 min, chronic back pain seeing [facility]. Neck still sore. [address] [facility] [place] [address] [phone] [facility] Recent fall at work seems to have Closed 2018 worsened lumbar herniated disk and radiculopathy. [address] [place] [address] [phone] Love Lomax MD pink lesion on face persisting for aprox 1 Closed 2018 year. Hx dermatitis. [facility] [address] [facility] [place] [address] [phone] Arnaldo Castellon MD Persistent RUQ pain and IBS-D - neg for celiac, Closed 03/22/2019 neg for h.pylori, H/o ishmael many years ago. Atopic. Tried eliminating dairy. [address] [place] [address] [phone]
--- OUTSIDE RECORDS SUMMARY | 2019-07-09 19:10 | XMS REPORT | Continuity of Care Document ---
:1965 External Reference #:[id number] Author Name Arnaldo Loyd MD Address [address] [place] [address] Care Team Providers Name Role Phone Elidia Gavin MD, PHD - Family Care Team Information Director [employer] [phone] Medicine Problems Active Problems Provider Date Varicose veins of lower extremity Shanthi Blankenship MD Onset: 09/14/2012 Benign essential hypertension Shanthi Blankenship MD Onset: 09/10/2011 Hyperlipidemia Isabel Ngo, [facility] Onset: 02/24/2017 Localized, primary osteoarthritis Amparo [...] Use Denies Drug Use Smoking Status Reviewed: 06/27/19 Patient denies history of smoking Allergies, Adverse Reactions, Alerts Active Allergies Reaction Severity Comments Date Sulfa Drugs 03/16/2014 Morphine 03/16/2014 Ibuprofen headache 03/16/2014 Metronidazole rash Mild \\ 03/15/2018 Influenza B Virus Vaccine makes her ill 06/16/2019 B/[place]/ Antigen / Influenza Virus Vaccine, Live Attenuated, M-[id number]-8 (H1N1) Strain / Influenza Virus Vaccine, Live Attenuated, N-Hybkt-17-2009 (H3N2) Strain Lisinopril Cough, Diarrhea 06/16/2019 Medications Active Medications SIG Qnty Indications Ordering Date Provider Montelukast Sodium Take 1 Tablet By 90tabs Leslye, 06/23/2019 10mg Mouth Every Day MD Eildia, Tablets AT Bedtime as PHD Needed For Allergies Methocarbamol 1 tabs by mouth 30tabs M54.2 Leslye, 06/23/2019 500mg at bedtime as MD Elidia, Tablets needed for muscle PHD spasm Nac 600 1 cap by mouth 90caps F41.9 Leslye, 06/16/2019 600mg Capsules three times a day MD Elidia, after meals PHD Spironolactone Take 1 Tablet By 90tabs I10 Leslye, 05/24/2019 25mg Mouth Every MD Elidia, Tablets Morning PHD Fluticasone Propionate Shake Liquid And 48units [place], 05/05/2019 Use 1 [place] In MD Elidia, 50mcg/Act Suspension Each Nostril PHD Daily Co Q-10 Maximum 1 caps by mouth 90caps G43.909 [place], 04/25/2019 Strength every day MD Elidia, 400mg [...] twice a day Excedrin Migraine prn Unknown [phone] Tablets Aspirin 1 by mouth every Unknown 325mg Tablets DR day Zwingle 3 2 by mouth every Unknown 1200mg [...] Ngo SAdrian, 02/18/2019 (methylprednisolone acetate) RPAC Injection Depomedrol 40mg/1cc Isabel Ngo S., 02/18/2019 (methylprednisolone acetate) RPAC Injection Depomedrol 40mg/1cc Isabel Ngo SAdrian, 02/18/2019 (methylprednisolone acetate) RPAC Injection Methylprednisolone acetate Isabel Ngo SAdrian, 11/16/2018 (Depomedrol) 80mg injection RPAC Injection Betamethasone Acetate & Sodium Isabel Ngo S., 09/15/2018 Phosphate 3 MG Of Each RPAC Injection Methylprednisolone acetate Isabel Ngo S., 07/21/2018 (Depomedrol) 80mg injection RPAC Injection Depomedrol 40mg/1cc Isabel Ngo S., 07/21/2018 (methylprednisolone acetate) RPAC Injection Methylprednisolone acetate Isabel Ngo SAdrian, 04/19/2018 (Depomedrol) 80mg injection RPAC Injection Depomedrol 40mg/1cc Isabel Ngo, 04/19/2018 (methylprednisolone acetate) RPAC Injection Methylprednisolone acetate Isabel Ngo, 12/22/2017 (Depomedrol) 80mg injection RPAC Injection Depomedrol 40mg/1cc Isabel Ngo, 12/22/2017 (methylprednisolone acetate) RPAC Injection Methylprednisolone acetate Isabel Ngo, 09/25/2017 (Depomedrol) 80mg injection RPAC Injection Depomedrol 40mg/1cc Isabel Ngo, 07/07/2017 (methylprednisolone acetate) RPAC Injection Depo-Medrol 20mg Isabel Ngo, 07/07/2017 Injection RPAC Methylprednisolone acetate Isabel Ngo, 05/27/2017 (Depomedrol) 80mg injection RPAC Injection Methylprednisolone acetate Isabel Ngo, 03/10/2017 (Depomedrol) 80mg injection RPAC Injection Methylprednisolone acetate Isaebl Ngo, 02/24/2017 (Depomedrol) 80mg injection RPAC Injection Immunizations CPT Code Status Date Vaccine Lot # 33706 Given 12/21/2017 Tdap injection [id number] 14054 Given 09/19/2013 flu vaccination 15860 Given 05/01/2009 flu vaccination 46288 Given 07/10/2008 flu vaccination 00242 Given 06/29/2007 flu vaccination Vital Signs Date Vital Result Comment 06/23/2019 12:53pm BP Systolic 145 mmHg BP Diastolic 91 mmHg Body Temperature 98.3 F Heart Rate 77 /min Respiratory Rate 18 /min Height 62.5 inches 5'2.50" Weight 230.00 lb BMI (Body Mass Index) 41.4 kg/m2 BSA (Body Surface Area) 2.04 m2 [place] body weight in kilograms 51 kg O2 % BldC Oximetry 97 % 06/16/2019 2:09pm BP Systolic 160 mmHg BP Diastolic 95 mmHg Body Temperature 98.1 F Heart Rate 75 /min Respiratory Rate 16 /min Height 62.5 inches 5'2.50" Weight 231.00 lb BMI (Body Mass Index) 41.6 kg/m2 BSA (Body Surface Area) 2.04 m2 [place] body weight in kilograms 51 kg O2 % BldC Oximetry 97 % Results Test Acquired Date Facility Test Result H/L Range Note Laboratory test 04/02/2019 [facility] Sedimentation Rate 48 mm/hr High 2-45 1 , [address] [place] [address] [phone] C-Reactive Protein,Quant 4.3 mg/L High <3.0 Stool Fecal Fat QL 04/02/2019 [facility] Fats, Neutral Normal . 3 [address] [place] [address] [phone] Fats, Total Normal . 4 Stool Panel 04/02/2019 [facility] O&P Ova & Parasite Exam <pending> [address] [place], [place] [id number] [phone] C. Difficile Toxin B by PCR NEGATIVE Negative 5 Laboratory test 04/02/2019 [facility] Pancreatic 490.0 ug/g >200 6 finding [address] [facility] Elastase (Pe-1) [place], [place] [id number] [phone] Calprotectin, Fecal < 16 ug/g 0-120 7 Amylase 50 U/L Normal 25-115 Lipase 81 U/L Normal 56-289 Enteric 04/02/2019 [facility] Campylobacter SP NEGATIVE Negative Pathogens [address] PCR Panel, [place] [address] [phone] E. coli Stec PCR NEGATIVE Negative 8 Shigella Sp. PCR NEGATIVE Negative Salmonella Sp. PCR NEGATIVE Negative 9 Ova And 04/02/2019 [facility] Cryptosporidium, PCR NEGATIVE Negative [facility]asite [address] [facility] [place] [address] [phone] Giardia PCR NEGATIVE Negative 10 IBD Expanded Panel 04/02/2019 [facility] Julianna 23 units 0-[address] [place], [place] [id number] [phone] Acca 23 units 0-90 12 Alca 4 [...] Abnormal Repeat as clinically indicated Performed at: [address] [id number] [facility]: Martha Vincent MD, Phone: [phone] Performed at: [address] [id number] [facility]: Brandi Lamas MD, Phone: [phone] 8 Shiga-toxin producing E. coli (STEC). 9 [...] developed and its performance characteristics determined by [employer]. It has not been cleared or approved by the Food and Drug Administration. The FDA has determined that such clearance or approval is not necessary. 15 Pattern is not suggestive of Inflammatory Bowel Disease Procedures Date Code Description Status 06/27/2019 91657 Visual Field Exam Extended, Unilateral Or Bilateral Completed 06/27/2019 21878 Eye Exam Est Patient Comprehensive Completed 06/08/2019 66515 Radiology, Finger(S), Two Views Completed 06/08/2019 46914 Radiology, Finger(S), Two Views Completed 06/08/201951639 Asp./Injection major joint Completed 05/10/201921012 Asp/Injection small joint/bursa (ie-fingers,toes) Completed 04/20/2019 86586 Colonoscopy With Biopsy Completed 04/20/2019 56917 Colonoscopy With Biopsy Completed 04/20/2019 81266 EGD With Biopsy Completed 04/20/2019 37709 EGD With Biopsy Completed 03/24/2019 12313 Eye Exam New Patient Comprehensive Completed 03/22/2019 51240 Anoscopy Completed 02/18/2019 53020 Radiology, Knee 3 Views Completed 02/18/2019 47077 Radiology, Knee 3 Views Completed 02/18/2019 34520 Radiology, Knee 3 Views Completed 02/18/201973644 Asp./Injection major joint Completed 02/18/201917510 Asp./Injection major joint Completed 02/18/201945451 Asp./Injection major joint Completed 01/21/2019 98996 Destruct-Skin Tags/Lesions-Local Anesthesia - First Completed Lesion 12/21/2017 87676045 Mammogram Completed 05/11/2014 21626530 Colonoscopy Completed Medical Devices Description No Information [...] in right knee Office Visit 06/16/2019 Family Medicine Leslye, F41.9 Anxiety disorder, 2:15p Kirk Brenner MD, unspecified PHD Office Visit 06/08/2019 Orthopaedic Ngo, M17.0 Bilateral primary 1:15p Office Isabel Marrufo, osteoarthritis of RPAC knee M25.561 Pain in right knee M25.562 Pain in left knee M25.541 Pain in joints of right hand M25.542 Pain in joints of left hand M18.0 Bilateral primary osteoarth of first carpometacarp joints Office Visit 05/24/2019 1:00p [facility] Fartun Gavin, Z04.2 Encounter for exam Kirk Brenner MD, [...] tract Office Visit 04/25/2019 8:30a Family Fartun Gavin, Z04.2 Encounter for exam Kirk Brenner MD, [...] Family Medicine Lyly Gavin04.2 Encounter for exam iKrk Brenner MD, and observation PHD following work [...] mobility Office Visit 03/22/2019 8:45a GI Arnaldo Catsellon MD R10.31 Right lower quadrant pain R10.32 [...] Dermatitis, unspecified Assessments Date Code Description Provider 06/27/2019 F07.81 Postconcussional syndrome Arnaldo oLyd MD 06/27/2019 H04.123 Dry eye syndrome of bilateral lacrimal Arnaldo Loyd MD glands 06/23/2019 Z04.2 Encounter for examination and Elidia [...] 06/16/2019 F41.9 Anxiety disorder, unspecified Cuca Gasca, [facility] 06/16/2019 F41.9 Anxiety disorder, unspecified Elidia Gavin MD, PHD 06/08/2019 M17.0 Bilateral primary osteoarthritis of knee Ngo, Isabel S. , [facility] 06/08/2019 M25.561 Pain in right knee Ngo, Isabel S., [facility] 06/08/2019 M25.562 Pain in left knee Ngo, Isabel S., [facility] 06/08/2019 M25.541 Pain in joints of right hand Ngo, Isabel S., [facility] 06/08/2019 M25.542 Pain in joints of left hand Ngo, Isabel S., [facility] 06/08/2019 M18.0 Bilateral primary osteoarthritis of Ngo, Isabel S., [facility] first carpometacarpal joints 05/24/2019 Z04.2 Encounter [...] M18.11 Unilateral primary osteoarthritis of Isabel Ngo, [facility] first carpometacarpal j 04/25/2019 Z04.2 Encounter [...] Pain in right knee Ngo, Isabel S., [facility] 02/18/2019 M25.561 Pain in right knee Ngo, Isabel S., [facility] 02/18/2019 M25.562 Pain in left knee Ngo, Isabel S., [facility] 02/18/2019 M25.562 Pain in left knee Ngo, Isabel S., [facility] 02/18/2019 M17.0 Bilateral primary osteoarthritis of knee Ngo, Isabel S. , [facility] 02/18/2019 M17.0 Bilateral primary osteoarthritis of knee Ngo, Isabel S. 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, [...] Gavin MD, PHD Plan of Treatment Future Appointment(s):07/02/2020 2:00 pm - Arnaldo Loyd MD at Nthqrmgzvfxnm15/ 21/2019 2:00 pm - Elidia Gavin MD, PHD at [facility]2018 9:00 am - Isabel Ngo, [facility] at Orthopaedic Xskxgt8606/27/2019 - Arnaldo Loyd MDF07.81 Postconcussional syndromeComments:- visual symptoms improved- you're doing a great job healing- visual field intact without suggestionof neurologic visual field loss; suggesting visual processing improved - working with concussion clinic: headache improved- no sign of optic neuropathy - no sign of orbital fracture- no sign of retinopathy- no ophthalmic signs of increased intracranial pressureFollow up:1 year examH04.123 Dry eye syndrome of bilateral lacrimal glandsComments:- warm compresses: can help to open up oil glands and stabilize the tear film- artificial tears botheyes: can use 4 times daily - can also use tears before performing activities while concentrating Functional Status Functional Condition Comment Date Status Glasses Active Mental Status Description No Information Available Referrals Refer to Reason for Referral Status Appt Date [facility], PT/OT/[facility]/[place] Patient Declined [address] [place] [id number] [phone] Closed Arnaldo Loyd MD Post-concussion 1 month. Still having headaches. Closed Gets nauseated if reads for 30 min - with old reading glasses. Denies double vision. Please evaluate and recommend treatment. Has not done OT therapy yet. [address] [place] [address] [phone] Concussion Clinic @ [facility] Concussion from work comp injury Closed 2018 Medical - continuing daily headaches, face trauma, still nauseated if reads for 30 min, chronic back pain seeing spine and wellness. Neck still sore. [address] [facility] [place] [address] [phone] [facility] Recent fall at work seems to have Closed 2018 worsened lumbar herniated disk and radiculopathy. [address] [place] [address] [phone] Love Lomax MD pink lesion on face persisting for aprox 1 Closed 2018 year. Hx dermatitis. [facility] [address] [facility] [place] [address] [phone] Arnaldo Castellon MD Persistent RUQ pain and IBS-D - neg for celiac, Closed 03/22/2019 neg for h.pylori, H/o ishmael many years ago. Atopic. Tried eliminating dairy. [address] [facility] [address] [place] [address] [phone]
--- OUTSIDE RECORDS SUMMARY | 2019-07-09 19:10 | XMS REPORT | Continuity of Care Document ---
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 Medicine Problems Active Problems Provider Date Varicose veins of lower extremity Shanthi Blankenship MD Onset: 09/14/2012 Benign essential hypertension Shanthi Blankenship MD Onset: 09/10/2011 Hyperlipidemia Isabel Ngo, [facility] Onset: 02/24/2017 Localized, primary osteoarthritis Amparo Ortiz [...] subsequent striking against unspecified object, subsequent encounter Resolved Problems Neoplastic disease of uncertain behavior [...] Use Denies Drug Use Smoking Status Reviewed: 06/16/19 Patient denies history of smoking Allergies, Adverse Reactions, Alerts Active Allergies Reaction Severity Comments Date Sulfa Drugs 03/16/2014 Morphine 03/16/2014 Ibuprofen headache 03/16/2014 Metronidazole rash Mild \\ 03/15/2018 Influenza B Virus Vaccine makes her ill 06/16/2019 B/[place]/ Antigen / Influenza Virus Vaccine, Live Attenuated, X-[id number]-0-2009 (H1N1) Strain / Influenza Virus Vaccine, Live Attenuated, H-Mwcji-96 (H3N2) Strain Lisinopril Cough, Diarrhea 06/16/2019 Medications Active Medications SIG Qnty Indications Ordering Date Provider Nac 600 1 cap by mouth 90caps F41.9 Elidia Gavin, 06/16/2019 600mg Capsules three times a MD PHD day after meals Spironolactone Take 1 Tablet 90tabs I10 Elidia Gavin, 05/24/2019 25mg Tablets By Mouth Every , PHD Morning Fluticasone Propionate Shake Liquid 48units Elidia Gavin, 05/05/2019 And Use 1 [place] MD PHD 50mcg/Act Suspension In Each Nostril Daily Co Q-10 Maximum 1 caps by mouth 90caps G43.909 Elidia Gavin, 04/25/2019 Strength every day MD, PHD 400mg Capsules Propranolol HCL ER 1 [...] twice a day Excedrin Migraine prn Unknown [phone] Tablets Aspirin 1 by mouth every Unknown 325mg Tablets DR day [place] 3 2 by mouth every Unknown 1200mg Capsules day Potassium Chloride Jane ER Take 1/2 Tablet By 45tabs Elidia Gavin MD, 10Meq Mouth Every Day. PHD Tablets ER Maximum Daily Dose Is 1/2 Diosimn twice a day Shanthi Blankenship, Multi For Her 2 po qd Shanthi Blankenship, Capsules History Medications Meloxicam Take 1/2 Tablet 90tabs Ashia Swenson, 06/08/2019 - 15mg Tablets By Mouth Manuel TOPETE 06/16/2019 Day With Food. If No Stomach Upset, Increase To 1 Tablet Every Day Magnesium Gluconate 1 tab by mouth 90tabs G43.909 Leslye, 04/25/2019 - every day MD Elidia, 05/17/2019 500mg Tablets PHD Amitriptyline HCL 1 tab by mouth 30tabs G43.909 Leslye, 04/25/2019 - 10mg every day MD Elidia, Unknown Tablets Dulcolax 4 tablets taken a 4tabs Z86.010 [...] Ngo S., 02/18/2019 (methylprednisolone acetate) RPAC Injection Methylprednisolone acetate [...] RPAC Injection Methylprednisolone acetate Isabel Ngo SAdrian, 12/22/2017 (Depomedrol) 80mg injection RPAC Injection Depomedrol 40mg/1cc Isabel Ngo S., 12/22/2017 (methylprednisolone acetate) RPAC Injection Methylprednisolone acetate Isabel Ngo Justus., 09/25/2017 (Depomedrol) 80mg injection RPAC Injection Depomedrol 40mg/1cc Ngo, Isabel S., 07/07/2017 (methylprednisolone acetate) RPAC Injection Depo-Medrol 20mg NgoIsabel bang, 07/07/2017 Injection RPAC Methylprednisolone acetate NgoIsabel bang, 05/27/2017 (Depomedrol) 80mg injection RPAC Injection Methylprednisolone acetate Ngo, Isabel S., 03/10/2017 (Depomedrol) 80mg injection RPAC Injection Methylprednisolone acetate Ngo, Isabel Yaron, 02/24/2017 (Depomedrol) 80mg injection RPAC Injection Immunizations CPT Code Status Date Vaccine Lot # [id number] Given 12/21/2017 Tdap injection [id number] Given 09/19/2013 flu vaccination 38614 Given 05/01/2009 flu vaccination 58837 Given 07/10/2008 flu vaccination 13213 Given 06/29/2007 flu vaccination Vital Signs Date Vital Result Comment 06/16/2019 2:09pm BP Systolic 160 mmHg BP Diastolic 95 mmHg Body Temperature 98.1 F Heart Rate 75 /min Respiratory Rate 16 /min Height 62.5 inches 5'2.50" Weight 231.00 lb BMI (Body Mass Index) 41.6 kg/m2 BSA (Body Surface Area) 2.04 m2 [place] body weight in kilograms 51 kg O2 % BldC Oximetry 97 % 06/08/2019 1:08pm BP Systolic 118 mmHg BP Diastolic 80 mmHg Body Temperature 96.9 F Heart Rate 89 /min Height 62.5 inches 5'2.50" Weight 233.00 lb BMI (Body Mass Index) 41.9 kg/m2 BSA (Body Surface Area) 2.05 m2 [place] body weight in kilograms 51 kg O2 % BldC Oximetry 98 % Results Test Date Facility Test Result H/L Range Note Laboratory test 04/02/2019 [facility] Sedimentation Rate 48 mm/hr High 2-45 1 , 2 finding [address] [place] [address] [phone] C-Reactive Protein,Quant 4.3 mg/L High <3.0 Stool Fecal Fat QL 04/02/2019 [facility] Fats, Neutral Normal . 3 [address] [place] [id number] [phone] Fats, Total Normal . 4 Stool Panel 04/02/2019 [facility] O&P Ova & Parasite Exam <pending> [address] [place], [place] [id number] [phone] C. Difficile Toxin B by PCR NEGATIVE Negative 5 Laboratory test 04/02/2019 [facility] Pancreatic 490.0 ug/g >200 6 finding [address] Elastase (Pe-1) [place], [place] [id number] [phone] Calprotectin, Fecal < 16 ug/g 0-120 7 Amylase 50 U/L Normal 25-115 Lipase 81 U/L Normal 56-289 Enteric 04/02/2019 [facility] Campylobacter SP NEGATIVE Negative Pathogens [address] PCR Panel, [place] [address] [phone] E. coli Stec PCR NEGATIVE Negative 8 Shigella Sp. PCR NEGATIVE Negative Salmonella Sp. PCR NEGATIVE Negative 9 Ova And 04/02/2019 [facility] Cryptosporidium, PCR NEGATIVE Negative Parasite [address] Screen, [place] [address] [phone] Giardia PCR NEGATIVE Negative 10 IBD Expanded Panel 04/02/2019 [facility] Julianna 23 units 0-50 11 [address] [place] [address] [phone] Acca 23 units 0-90 12 Alca 4 [...] Abnormal Repeat as clinically indicated Performed at: [facility] [address] [id number] Computer Systems Administrator: Martha Vincent MD, Phone: [phone] Performed at: [facility] [address] [id number] Computer Systems Administrator: Brandi Lamas MD, Phone: [phone] Shiga-toxin producing E. coli (STEC). 9 [...] developed and its performance characteristics determined by [employer]. It has not been cleared or approved by the Food and Drug Administration. The FDA has determined that such clearance or approval is not necessary. 15 Pattern is not suggestive of Inflammatory Bowel Disease Procedures Date Code Description Status 06/08/2019 76233 Radiology, Finger(S), Two Views Completed 06/08/2019 36333 Radiology, Finger(S), Two Views Completed 06/08/201964220 Asp./Injection major joint Completed 05/10/2019 Asp/Injection small joint/bursa (ie-fingers,toes) Completed 04/20/2019 69888 Colonoscopy With Biopsy Completed 04/20/2019 42213 Colonoscopy With Biopsy Completed 04/20/2019 31743 EGD With Biopsy Completed 04/20/2019 96873 EGD With Biopsy Completed 03/24/2019 37587 Eye Exam New Patient Comprehensive Completed 03/22/2019 85783 Anoscopy Completed 02/18/2019 92726 Radiology, Knee 3 Views Completed 02/18/2019 31184 Radiology, Knee 3 Views Completed 02/18/2019 74917 Radiology, Knee 3 Views Completed 02/18/201955893 Asp./Injection major joint Completed 02/18/201949575 Asp./Injection major joint Completed 02/18/2019 Asp./Injection major joint Completed 01/21/2019 23232 Destruct-Skin Tags/Lesions-Local Anesthesia - First Completed Lesion 12/21/2017 14078222 Mammogram Completed 05/11/2014 70010107 Colonoscopy Completed Medical Devices Description No Information Available Encounters Type Date Location Provider Dx Diagnosis Office Visit 06/08/2019 Orthopaedic Office Isabel Ngo M17.0 Bilateral primary 1:15p S., RPAC osteoarthritis of knee M25.561 Pain in right knee M25.562 Pain in left knee M25.541 Pain in joints of right hand M25.542 Pain in joints of left hand M18.0 Bilateral primary osteoarth of first carpometacarp joints Office Visit 05/24/2019 1:00p Family Medicine Lyly Gavin04.2 Encounter for exam [...] digestive tract Office Visit 04/25/2019 8:30a Family Lyly Reardon04.2 Encounter for exam Kirk Brenner MD, and [...] without status migrainosus Office Visit 03/23/2019 9:30a [facility] Lyly Reardon04.2 Encounter for exam Kirk Brenner MD, and [...] gait and mobility Office Visit 03/22/2019 8:45a Arnaldo Allen MD R10.31 Right lower quadrant pain R10.32 Left lower quadrant pain R19.4 Change in bowel habit K64.0 First degree hemorrhoids Z86.010 Personal history of colonic polyps Office Visit 02/21/2019 9:30a [facility] Yocasta Reardon.2 Encounter for exam Kirk Brenner MD, and observation PHD following work accident Z04.2 Encounter for exam and observation following work accident S01.91xA Laceration w/o foreign body of unsp part of head, init S01.91xA Laceration w/o foreign body of unsp part of head, init F07.81 Postconcussional syndrome F07.81 Postconcussional syndrome I10 Essential (primary) hypertension I10 Essential (primary) hypertension Office Visit 01/21/2019 3:00p Family Medicine Leslye 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 , [facility] 06/08/2019 M25.561 Pain in right knee Ngo, Isabel S., [facility] 06/08/2019 M25.562 Pain in left knee Ngo, Isabel S., [facility] 06/08/2019 M25.541 Pain in joints of right hand Ngo, Isabel S., [facility] 06/08/2019 M25.542 Pain in joints of left hand Ngo, Isabel S., [facility] 06/08/2019 M18.0 Bilateral primary osteoarthritis of Ngo, Isabel S., [facility] first carpometacarpal joints 05/24/2019 Z04.2 Encounter for [...] M18.11 Unilateral primary osteoarthritis of Isabel Ngo, [facility] first carpometacarpal j 04/25/2019 Z04.2 Encounter for [...] MD 02/18/2019 M25.561 Pain in right knee Isabel Ngo S., [facility] 02/18/2019 M25.561 Pain in right knee NgoIsabel S., [facility] 02/18/2019 M25.562 Pain in left knee NgoEmmaIsabel S., [facility] 02/18/2019 M25.562 Pain in left knee NgoEmmaIsabel S., [facility] 02/18/2019 M17.0 Bilateral primary osteoarthritis of knee NgoIsabel S. , [facility] 02/18/2019 M17.0 Bilateral primary osteoarthritis of knee NgoIsabel S. 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 Still having headaches. Closed Gets nauseated if reads for 30 min - with old reading glasses. Denies double vision. Please evaluate and recommend treatment. Has not done OT therapy yet. [address] [place] [address] [phone] Con[facility] @ [facility] Concussion from work comp injury Closed 2018 Medical - continuing daily headaches, face trauma, still nauseated if reads for 30 min, chronic back pain seeing spine and wellness. Neck still sore. [address] [facility] [place] [id number] [phone] [facility] Recent fall at work seems to have Closed 2018 worsened lumbar herniated disk and radiculopathy. [address] [place] [address] [phone] Love Lomax MD pink lesion on face persisting for aprox 1 Closed 2018 year. Hx dermatitis. [facility] [address] [place] [address] [phone] Arnaldo Castellon MD Persistent RUQ pain and IBS-D - neg for celiac, Closed 03/22/2019 neg for h.pylori, H/o ishmael many years ago. Atopic. Tried eliminating dairy. [address] [place] [address] [phone]
--- OUTSIDE RECORDS SUMMARY | 2019-07-09 19:10 | XMS REPORT | Continuity of Care Document ---
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 Medicine Problems Active Problems Provider Date Varicose veins of lower extremity Shanthi Blankenship MD Onset: 09/14/2012 Benign essential hypertension Shanthi Blankenship MD Onset: 09/10/2011 Hyperlipidemia Isabel Ngo [facility] Onset: 02/24/2017 Localized, primary osteoarthritis Amparo [...] PHD Onset: Right upper quadrant pain Elidia Gvain MD, PHD Onset: 01/21/2019 Migraine Elidia Gavin [...] SIG Qnty Indications Ordering Date Provider Spironolactone Take 1 Tablet 90tabs I10 Elidia Gavin, 05/24/2019 25mg Tablets By Mouth Every , PHD Morning Fluticasone Propionate Shake Liquid 48units Elidia Gavin, 05/05/2019 And Use 1 [place] MD PHD 50mcg/Act Suspension In Each Nostril Daily Co Q-10 Maximum 1 caps by mouth 90caps G43.909 Elidia Gavin, 04/25/2019 Strength every day PHD EFREM 400mg Capsules Propranolol HCL ER 1 tab by mouth 180caps I10 Elidia Gavin, 01/21/2019 60mg twice a day PHD EFREM Caps ER 24HR G43.909 K58.0 Desloratadine 1 by mouth every 90tabs Elidia Gavin MD, 11/05/2016 5mg Tablets day Milk Thistle Extract 1 qd Shanthi Blankenship, 09/25/2014 140mg MD Capsules Carnislim 250 MG 1 tab po daily Unknown Ultimate Hair Strength 2 tab po hs Unknown Ultimate Womans Wellness 1 tab by mouth Unknown twice a day Excedrin Migraine prn Unknown [phone] Tablets Aspirin 1 by mouth every Unknown 325mg Tablets DR day [place] 3 2 by mouth every Unknown 1200mg [...] Indications Ordering Provider Date Depomedrol 40mg/1cc Isabel Ngo S., 06/08/2019 (methylprednisolone acetate) RPAC Injection Depomedrol 40mg/1cc Isabel Ngo SAdrian, 06/08/2019 (methylprednisolone acetate) RPAC Injection Depomedrol 40mg/1cc Isabel Ngo S., 06/08/2019 (methylprednisolone acetate) RPAC Injection Betamethasone Acetate & Sodium Isabel Ngo S., 05/10/2019 Phosphate 3 MG Of Each RPAC [...] 80mg injection RPAC Injection Depomedrol 40mg/1cc Isabel Ngo., 12/22/2017 (methylprednisolone acetate) RPAC Injection Methylprednisolone acetate Isabel Ngo., 09/25/2017 (Depomedrol) 80mg injection RPAC Injection Depomedrol 40mg/1cc Isabel Ngo., 07/07/2017 (methylprednisolone acetate) RPAC Injection Depo-Medrol 20mg Isabel Ngo, 07/07/2017 Injection RPAC Methylprednisolone acetate Isabel Ngo, 05/27/2017 (Depomedrol) 80mg injection RPAC Injection Methylprednisolone acetate Isabel Ngo, 03/10/2017 (Depomedrol) 80mg injection RPAC Injection Methylprednisolone acetate Isabel Ngo, 02/24/2017 (Depomedrol) 80mg injection RPAC Injection Immunizations CPT Code Status Date Vaccine Lot # [id number] Given 12/21/2017 Tdap injection [id number] Given 09/19/2013 flu vaccination 35024 Given 05/01/2009 flu vaccination 38508 Given 07/10/2008 flu vaccination 21904 Given 06/29/2007 flu vaccination Vital Signs Date Vital Result Comment 06/08/2019 1:08pm BP Systolic 118 mmHg BP Diastolic 80 mmHg Body Temperature 96.9 F Heart Rate 89 /min Height 62.5 inches 5'2.50" Weight 233.00 lb BMI (Body Mass Index) 41.9 kg/m2 BSA (Body Surface Area) 2.05 m2 [place] body weight in kilograms 51 kg O2 % BldC Oximetry 98 % 05/24/2019 12:57pm BP Systolic 151 mmHg BP Diastolic 85 mmHg Body Temperature 98.1 F Heart Rate 62 /min Respiratory Rate 18 /min Height 62.5 inches 5'2.50" Weight 235.00 lb BMI (Body Mass Index) 42.3 kg/m2 BSA (Body Surface Area) 2.06 m2 [place] body weight in kilograms 51 kg O2 % BldC Oximetry 97 % Results Test Date Facility Test Result H/L Range Note Laboratory test 04/02/2019 [facility] Sedimentation Rate 48 mm/hr High 2-45 1 , 2 finding [address] [place] [address] [phone] C-Reactive Protein,Quant 4.3 mg/L High <3.0 Stool Fecal Fat QL 04/02/2019 [facility] Fats, Neutral Normal . [address] [place], [place] [id number] [phone] Fats, Total Normal . 4 Stool Panel 04/02/2019 [facility] O&P Ova & Parasite Exam <pending> [address] [place], [place] [id number] [phone] C. Difficile Toxin B by PCR NEGATIVE Negative 5 Laboratory test 04/02/2019 [facility] Pancreatic 490.0 ug/g >[address] Elastase (Pe-1) [place], [place] [address] [phone] Calprotectin, Fecal < 16 ug/g 0-120 7 Amylase 50 U/L Normal 25-115 Lipase 81 U/L Normal 56-289 Enteric 04/02/2019 [facility] Campylobacter SP NEGATIVE Negative Pathogens [address] PCR Panel, [place] [address] [phone] E. coli Stec PCR NEGATIVE Negative 8 Shigella Sp. PCR NEGATIVE Negative Salmonella Sp. PCR NEGATIVE Negative 9 Ova And 04/02/2019 [facility] Cryptosporidium, PCR NEGATIVE Negative Parasite [address] Screen, [place] [address] [phone] Giardia PCR NEGATIVE Negative 10 IBD Expanded Panel 04/02/2019 [facility] Julianna 23 units 0-[address] [place] [address] [phone] Acca 23 units 0-90 12 Alca 4 [...] Abnormal Repeat as clinically indicated Performed at: [facility] Lab[address] [id number] Computer Education Professor: Martha Vincent MD, Phone: [phone] Performed at: [facility] Lab[address] [id number] Computer Education Professor: Brandi Lamas MD, Phone: [phone] 8 Shiga-toxin producing E. coli (STEC). 9 [...] developed and its performance characteristics determined by [facility]. It has not been cleared or approved by the Food and Drug Administration. The FDA has determined that such clearance or approval is not necessary. 15 Pattern is not suggestive of Inflammatory Bowel Disease Procedures Date Code Description Status 06/08/2019 Asp./Injection major joint Completed 06/08/2019 Asp./Injection major joint Completed 05/10/2019 Asp/Injection small joint/bursa (ie-fingers,toes) Completed 04/20/2019 04249 Colonoscopy With Biopsy Completed 04/20/2019 47322 Colonoscopy With Biopsy Completed 04/20/2019 09112 EGD With Biopsy Completed 04/20/2019 11143 EGD With Biopsy Completed 03/24/2019 36152 Eye Exam New Patient Comprehensive Completed 03/22/2019 73384 Anoscopy Completed 02/18/2019 Asp./Injection major joint Completed 02/18/2019 Asp./Injection major joint Completed 02/18/2019 Asp./Injection major joint Completed 02/18/2019 04221 Radiology, Knee 3 Views Completed 02/18/2019 41847 Radiology, Knee 3 Views Completed 02/18/2019 65168 Radiology, Knee 3 Views Completed 01/21/2019 59441 Destruct-Skin Tags/Lesions-Local Anesthesia - First Completed Lesion 12/21/2017 [id number] Mammogram Completed 05/11/2014 10236663 Colonoscopy Completed Medical Devices Description No Information Available Encounters Type Date Location Provider Dx Diagnosis Office Visit 05/24/2019 Family Medicine Elidia Gavin, Z04.2 Encounter for exam 1:00p Kirk Tripathi MD, PHD and observation following work accident F07.81 Postconcussional syndrome M25.562 Pain in left knee M25.561 Pain in right knee W01.10xD Fall same lev from slip/trip w strike agnst unsp obj, subs I10 Essential (primary) hypertension Office Visit 05/17/2019 10:45a GI Arnaldo Castellon MD R19.4 Change in bowel habit Z86.010 Personal history of colonic polyps R93.3 Abnormal findings on dx imaging of prt digestive tract Office Visit 04/25/2019 8:30a Family Medicine Lyly Gavin04.2 Encounter for exam [...] without status migrainosus Office Visit 03/23/2019 9:30a [facility] Yocasta Reardon.2 Encounter for exam Kirk [...] colonic polyps Office Visit 02/21/2019 9:30a Family Yocasta Reardon.2 Encounter for exam Kirk Brenner [...] 3:00p Family Medicine Leslye 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 , [facility] 06/08/2019 M25.561 Pain in right knee Isabel Ngo., [facility] 06/08/2019 M25.562 Pain in left knee Isabel Ngo., [facility] 05/24/2019 Z04.2 Encounter for examination and Elidia [...] 05/10/2019 M18.11 Unilateral primary osteoarthritis of Isabel Ngo., [facility] first carpometacarpal j 04/25/2019 Z04.2 Encounter [...] Pain in right knee Ngo, Isabel S., [facility] 02/18/2019 M25.561 Pain in right knee Ngo, Isabel S., [facility] 02/18/2019 M25.562 Pain in left knee Ngo, Isabel S., [facility] 02/18/2019 M25.562 Pain in left knee Ngo, Isabel S., [facility] 02/18/2019 M17.0 Bilateral primary osteoarthritis of knee Ngo, Isabel S. , [facility] 02/18/2019 M17.0 Bilateral primary osteoarthritis of knee Ngo, Isabel S. 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, [...] Gavin MD, PHD Plan of Treatment Future Appointment(s):06/16/2019 2:15 pm - Elidia Gavin MD, PHD at [facility]06/23/2019 1:00 pm - Elidia Gavin MD, PHD at [facility]06/27/2019 2:15 pm - Arnaldo Loyd MD at [facility]/24/ 2019 - Elidia Gavin MD, PHDZ04.2 Encounter for examination and observation following work yfmdeahhP80.81 Postconcussional syndromeReferral:[facility], PT/OT/BUFFER [facility]/ [address],Follow up:Follow up in 4 weeks or sooner if needed.M25.562 Pain in left kneeM25.561 Pain in right kneeW01.10xD Fall on same level from slipping, tripping and stumbling with subsequent striking against unspecified object, subsequent [id number] Essential (primary) hypertensionNew Medication: Spironolactone 25 mg - Take 1 Tablet By Mouth Every MorningComments:PRESSURE POINTS1 What high blood pressure is. 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. ?? [...] Kim, professor of preventive medicine at the [employer]. That??s because blood pressure typically creeps up as youage. In the Atherosclerosis Risk in Communities study, which followed more than 15,000 Americans aged 45 to 64, average systolic blood pressure kelly by five points in five years.1 ??Blood pressures drift upward as people get older and they??re exposed to long-term excess sodium,?? explains Havas. ??That??s why almost all adults are going [...] hypertension, according to recent guidelines from the [place] [employer] and the [place] [employer].That means that many people [...] mg of sodium per slice is typical. Review Trackers and some other brands make it easy to stay at the low end.Cheese. Most types have 150 to 250 mg ofsodium per ounce. Try Icelandic (just 40 to 60 mg) or fresh [...] ??low-sodium?? meats that are sliced at the [employer] counter ( about 50 to 80 mg in 2 oz.).Soup. Most soups deliver 600 to 900 mg of sodium per cup. Try Imagine, Dr. Elan Zhao??s, Deepti??s Organic, or Vegetable Buncher Marcos?? s ??Light in Sodium?? or ??Reduced [...] 20 650 Yellowfin tuna (4 oz. cooked) 322730 Sweet potato with skin (1 small) 130 [...] Shelled edamame (?? cup cooked) 100 340 [place] or nectarine (1) 60 290 [place] sprouts (?? cup cooked) 30 250 [place] (1) 70 240 Ahsan lettuce (2 cups [...] Reason for Referral Status Appt Date [facility], PT/OT/BUFFER [facility]/[address] Patient Declined [address] [place] [address] [phone] Closed Arnaldo Loyd MD Post-concussion 1 month. Still having headaches. Closed Gets nauseated if reads for 30 min - with old reading glasses. Denies double vision. Please evaluate and recommend treatment. Has not done OT therapy yet. [address] [place] [address] [phone] Concussion Clinic @ [facility] Concussion from work comp injury Closed 2018 Medical - continuing daily headaches, face trauma, still nauseated if reads for 30 min, chronic back pain seeing spine and wellness. Neck still sore. [address] [facility] [place] [address] [phone] [facility] Recent fall at work seems to have Closed 2018 worsened lumbar herniated disk and radiculopathy. [address] [place] [address] [phone] Love Lomax MD pink lesion on face persisting for aprox 1 Closed 2018 year. Hx dermatitis. [facility] [address] [facility] [place] [address] [phone] Arnaldo Castellon MD Persistent RUQ pain and IBS-D - neg for celiac, Closed 03/22/2019 neg for h.pylori, H/o ishmael many years ago. Atopic. Tried eliminating dairy. [address] [facility] [address] [place] [address] [phone]
--- OUTSIDE RECORDS SUMMARY | 2019-07-09 19:10 | XMS REPORT | Continuity of Care Document ---
:1965 External Reference #:[id number] Author Name Isabel Ngo [facility] Address [facility] [place] [address] Care Team Providers Name Role Phone Elidia Gavin MD, PHD - Family Care Team Information [employer] Consultant [phone] Medicine Problems Active Problems Provider Date Varicose veins of lower extremity Shanthi Blankenship MD Onset: 09/14/2012 Benign essential hypertension Shanthi Blankenship MD Onset: 09/10/2011 Hyperlipidemia Isabel Ngo [facility] Onset: 02/24/2017 Localized, primary osteoarthritis Amparo Ortiz [...] headache 03/16/2014 Metronidazole rash Mild \\ 03/15/2018 Medications Active Medications SIG Qnty Indications Ordering Date Provider Meloxicam 1/2 tablet by 30tabs Ashia Swenson, 06/08/2019 15mg Tablets mouth every day MD with food. if no stomach upset increase to 1 tablet daily with food Spironolactone Take 1 Tablet By 90tabs I10 Elidia Gavin, 05/24/2019 25mg Mouth Every MD, PHD Tablets Morning Fluticasone Propionate Shake Liquid And 48units Elidia Gavin, 2018 Use 1 [place] In PHD EFREM 50mcg/Act Suspension Each Nostril Daily Co Q-10 Maximum 1 [...] Extract 1 qd Shanthi Blankenship, 09/25/2014 140mg Capsules Carnislim 250 MG 1 tab po daily Unknown Ultimate Hair Strength 2 tab po hs Unknown Ultimate Womans Wellness 1 tab by mouth Unknown twice a day Excedrin Migraine prn Unknown [phone] Tablets Aspirin 1 by mouth every Unknown 325mg Tablets DR day [place] 3 2 by mouth every Unknown 1200mg [...] Isabel Ngo, 06/08/2019 (methylprednisolone acetate) RPAC Injection Depomedrol 40mg/1cc [...] CPT Code Status Date Vaccine Lot # 12600 Given 12/21/2017 Tdap injection [id number] 48456 Given 09/19/2013 flu vaccination 46832 Given 05/01/2009 flu vaccination 09325 Given 07/10/2008 flu vaccination 52608 Given 06/29/2007 flu vaccination Vital Signs Date Vital Result Comment 06/08/2019 1:08pm BP Systolic 118 mmHg BP Diastolic 80 mmHg Body Temperature 96.9 F Heart Rate 89 /min Height 62.5 inches 5'2.50" Weight 233.00 lb BMI (Body Mass Index) 41.9 kg/m2 BSA (Body Surface Area) 2.05 m2 [place] body weight in kilograms 51 kg O2 % BldC Oximetry 98 % 05/24/2019 12:57pm BP Systolic 151 mmHg BP Diastolic 85 mmHg Body Temperature 98.1 F Heart Rate 62 /min Respiratory Rate 18 /min Height 62.5 inches 5'2.50" Weight 235.00 lb BMI (Body Mass Index) 42.3 kg/m2 BSA (Body Surface Area) 2.06 m2 [place] body weight in kilograms 51 kg O2 % BldC Oximetry 97 % Results Test Date Facility Test Result H/L Range Note Xray 06/08/2019 [facility] RMP, Finger, < pending> [address] Thumb, [place], [place] [id number] [phone] RMP, Finger, Thumb, RT <pending> Laboratory test 04/02/2019 [facility] Sedimentation 48 mm/hr High 2-45 1, [address] [place] [address] [phone] C-Reactive Protein,Quant 4.3 mg/L High <3.0 Stool Fecal Fat QL 04/02/2019 [facility] Fats, Neutral Normal . [address] [place] [address] [phone] Fats, Total Normal . 4 Stool Panel 04/02/2019 [facility] O&P Ova & Parasite Exam <pending> [address] [place] [address] [phone] C. Difficile Toxin B by PCR NEGATIVE Negative 5 Laboratory test 04/02/2019 [facility] Pancreatic 490.0 ug/g >200 [address] Elastase (Pe-1) [place] [address] [phone] Calprotectin, Fecal < 16 ug/g 0-120 7 Amylase 50 U/L Normal 25-115 Lipase 81 U/L Normal 56-289 Enteric 04/02/2019 [facility] Campylobacter SP NEGATIVE Negative Pathogens [address] PCR Panel, PCR [place], [place] [address] [phone] E. coli Stec PCR NEGATIVE Negative 8 Shigella Sp. PCR NEGATIVE Negative Salmonella Sp. PCR NEGATIVE Negative 9 Ova And 04/02/2019 [facility] Cryptosporidium, PCR NEGATIVE Negative Parasite [address] Screen, PCR [place], [place] [address] [phone] Giardia PCR NEGATIVE Negative 10 IBD Expanded Panel 04/02/2019 [facility] Julianna 23 units 0-[address] [place] [address] [phone] Acca 23 units 0-90 12 Alca 4 [...] Abnormal Repeat as clinically indicated Performed at: [facility] [address] [id number] Mate Chief: Martha Vincent MD, Phone: [phone] Performed at: [facility] Lab[address] [id number] Mate Chief: Brandi Lamas MD, Phone: [phone] 8 Shiga-toxin producing E. coli (STEC). 9 [...] developed and its performance characteristics determined by [facility]. It has not been cleared or approved by the Food and Drug Administration. The FDA has determined that such clearance or approval is not necessary. 15 Pattern is not suggestive of Inflammatory Bowel Disease Procedures Date Code Description Status 06/08/2019 85087 Radiology, Finger(S), Two Views Completed 06/08/2019 97978 Radiology, Finger(S), Two Views Completed 06/08/2019 Asp./Injection major joint Completed 06/08/2019 Asp./Injection major joint Completed 05/10/2019 Asp/Injection small joint/bursa (ie-fingers,toes) Completed 04/20/2019 67741 Colonoscopy With Biopsy Completed 04/20/2019 22722 Colonoscopy With Biopsy Completed 04/20/2019 15539 EGD With Biopsy Completed 04/20/2019 57297 EGD With Biopsy Completed 03/24/2019 70401 Eye Exam New Patient Comprehensive Completed 03/22/2019 23333 Anoscopy Completed 02/18/2019 60108 Radiology, Knee 3 Views Completed 02/18/2019 58341 Radiology, Knee 3 Views Completed 02/18/2019 00951 Radiology, Knee 3 Views Completed 02/18/201920510 Asp./Injection major joint Completed 02/18/2019 Asp./Injection major joint Completed 02/18/2019 Asp./Injection major joint Completed 01/21/2019 11167 Destruct-Skin Tags/Lesions-Local Anesthesia - First Completed Lesion 12/21/2017 15002423 Mammogram Completed 05/11/2014 48124238 Colonoscopy Completed Medical Devices Description No Information [...] status migrainosus Office Visit 03/23/2019 9:30a Family Lyly Reardon04.2 Encounter for exam Kirk [...] polyps Office Visit 02/21/2019 9:30a Family Medicine Leslye, Z04.2 Encounter for exam Kirk Brenner MD, and observation PHD following work accident Z04.2 Encounter for exam and observation following work accident S01.91xA Laceration w/o foreign body of unsp part of head, init S01.91xA Laceration w/o foreign body of unsp part of head, init F07.81 Postconcussional syndrome F07.81 Postconcussional syndrome I10 Essential (primary) hypertension I10 Essential (primary) hypertension Office Visit 01/21/2019 3:00p Family Fartun Gavin, 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 , [facility] 06/08/2019 M25.561 Pain in right knee Isabel Ngo S., [facility] 06/08/2019 M25.562 Pain in left knee Isabel Ngo S., [facility] 06/08/2019 M25.541 Pain in joints of right hand Isabel Ngo S., [facility] 06/08/2019 M25.542 Pain in joints of left hand Isabel Ngo S., [facility] 06/08/2019 M18.0 Bilateral primary osteoarthritis of Isabel Ngo S., [facility] first carpometacarpal joints 05/24/2019 Z04.2 Encounter for [...] Unilateral primary osteoarthritis of Jeni Isabel JeromeAdrian, [facility] first carpometacarpal j 04/25/2019 Z04.2 Encounter for [...] Dry eye syndrome of bilateral lacrimal Arnaldo Lody MD glands 03/23/2019 Z04.2 Encounter for examination [...] M25.561 Pain in right knee Isabel Ngo, [facility] 02/18/2019 M25.561 Pain in right knee Isabel Ngo, [facility] 02/18/2019 M25.562 Pain in left knee Isabel NgoAdrian, [facility] 02/18/2019 M25.562 Pain in left knee Isabel NgoAdrian, [facility] 02/18/2019 M17.0 Bilateral primary osteoarthritis of knee Isabel NgoAdrian , [facility] 02/18/2019 M17.0 Bilateral primary osteoarthritis of knee Isabel NgoAdrian , [facility] 02/18/2019 M25.562 Pain in left knee Isabel NgoAdrian, [facility] 02/18/2019 M25.561 Pain in right knee Isabel NgoAdrian, [facility] 01/21/2019 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, Elidia [...] Future Appointment(s):08/22/2019 9:00 am - Isabel Ngo [facility] at [facility]006/16/2019 2:15 pm - Elidia Gavin MD, PHD at [facility]06/23/2019 1:00 pm - Elidia Gavin MD, PHD at [facility]06/27/2019 2:15 pm - Arnaldo Loyd MD at [facility]78/09/ 2019 - Isabel Ngo, RPACM17.0 Bilateral primary osteoarthritis of kneeM25.561 Pain in right kneeM25.562 Pain in left kneeM25.541 Pain in joints of right handM25.542 Pain in joints of left handM18.0 Bilateral primary osteoarthritis of first carpometacarpal jointsAllNew Medication:Meloxicam 15 mg - 1/2 tablet by mouth every day with food. 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 Still having headaches. Closed Gets nauseated if reads for 30 min - with old reading glasses. Denies double vision. Please evaluate and recommend treatment. Has not done OT therapy yet. [address] [place], [place] [id number] [phone] Concussion Clinic @ [facility] Concussion from work comp injury Closed 2018 Medical - continuing daily headaches, face trauma, still nauseated if reads for 30 min, chronic back pain seeing spine and wellness. Neck still sore. [address] [facility] [place] [address] [phone] [facility] Recent fall at work seems to have Closed 2018 worsened lumbar herniated disk and radiculopathy. [address] [place] [address] [phone] Love Lomax MD pink lesion on face persisting for aprox 1 Closed 2018 year. Hx dermatitis. [facility] [address] [facility] [place] [address] [phone] Arnaldo Castellon MD Persistent RUQ pain and IBS-D - neg for celiac, Closed 03/22/2019 neg for h.pylori, H/o ishmael many years ago. Atopic. Tried eliminating dairy. [address] [place] [address] [phone]
--- OUTSIDE RECORDS SUMMARY | 2019-07-09 19:10 | XMS REPORT | Continuity of Care Document ---
:1965 External Reference #:[id number] Author Name Arnaldo Castellon MD Address [address] [place] [address] Care Team Providers Name Role Phone Elidia Gavin MD, PHD - Family Care Team Information Licensing Specialist [phone] Medicine Problems Active Problems Provider Date Varicose veins of lower extremity Shanthi Blankenship MD Onset: 09/14/2012 Benign essential hypertension Shanthi Blankenship MD Onset: 09/10/2011 Hyperlipidemia Isabel Ngo, [facility] Onset: 02/24/2017 Localized, primary osteoarthritis Amparo Ortiz [...] Use Denies Drug Use Smoking Status Reviewed: 05/17/19 Patient denies history of smoking Allergies, Adverse Reactions, Alerts Active Allergies Reaction Severity Comments Date Sulfa Drugs 03/16/2014 Morphine 03/16/2014 Ibuprofen 03/16/2014 Metronidazole rash Mild \\ 03/15/2018 Medications Active Medications SIG Qnty Indications Ordering Provider Date Fluticasone Shake Liquid And 48units Elidia Gavin, 05/05/2019 Propionate Use 1 [place] , PHD 50mcg/Act Each Nostril Suspension Daily Co Q-10 Maximum 1 caps by [...] qd Shanthi Blankenship, 09/25/2014 140mg MD Capsules Ranitidine 150 Maximum 1 by mouth q 3rd 180tabs Elidia Gavin MD, Strength day PHD 150mg Tablets Carnislim 250 MG 1 tab po daily Unknown Ultimate Hair Strength 2 tab po hs Unknown [facility] 1 tab by mouth Unknown twice a day Excedrin Migraine prn Unknown [phone] Tablets Aspirin 1 by mouth every Unknown 325mg Tablets DR day [place] 3 2 by mouth every Unknown 1200mg Capsules day Potassium Chloride Jane Take 1/2 Tablet By 45tabs Elidia Gavin MD, ER Mouth Every Day. PHD 10Meq Tablets ER Maximum Daily Dose Is 1/2 [...] Provider Date Betamethasone Acetate & Sodium Isabel Ngo, 05/10/2019 Phosphate 3 MG Of Each RPAC Injection Depomedrol 40mg/1cc Isabel Ngo SAdrian, [...] Each RPAC Injection Methylprednisolone acetate Isabel Ngo SAdrian, 07/21/2018 (Depomedrol) 80mg injection RPAC Injection Depomedrol 40mg/1cc Isabel Ngo SAdrian, 07/21/2018 (methylprednisolone acetate) RPAC Injection Methylprednisolone acetate Isabel Ngo, 04/19/2018 (Depomedrol) 80mg injection RPAC Injection Depomedrol 40mg/1cc Isabel Ngo SAdrian, 04/19/2018 (methylprednisolone acetate) RPAC Injection Methylprednisolone acetate Isabel Ngo SAdrian, 12/22/2017 (Depomedrol) 80mg injection RPAC Injection Depomedrol 40mg/1cc Isabel Ngo SAdrian, 12/22/2017 (methylprednisolone acetate) RPAC Injection Methylprednisolone acetate Isabel Ngo, 09/25/2017 (Depomedrol) 80mg injection RPAC Injection Depomedrol 40mg/1cc Isabel Ngo Justus., 07/07/2017 (methylprednisolone acetate) RPAC Injection Depo-Medrol 20mg Ngo, Isabel S., 07/07/2017 Injection RPAC Methylprednisolone acetate Ngo, Isabel Justus., 05/27/2017 (Depomedrol) 80mg injection RPAC Injection Methylprednisolone acetate Ngo, Isabel S., 03/10/2017 (Depomedrol) 80mg injection RPAC Injection Methylprednisolone acetate Ngo, Isabel S., 02/24/2017 (Depomedrol) 80mg injection RPAC Injection Immunizations CPT Code Status Date Vaccine Lot # [id number] Given 12/21/2017 Tdap injection [id number] Given 09/19/2013 flu vaccination 79431 Given 05/01/2009 flu vaccination 80676 Given 07/10/2008 flu vaccination 75114 Given 06/29/2007 flu vaccination Vital Signs Date Vital Result Comment 05/17/2019 11:14am BP Systolic Sitting Left Arm 146 mmHg BP Diastolic Sitting Left Arm 88 mmHg Body Temperature 99.8 F Heart Rate 73 /min Respiratory Rate 16 /min Height 62.5 inches 5'2.50" Weight 232.00 lb BMI (Body Mass Index) 41.8 kg/m2 BSA (Body Surface Area) 2.05 m2 Stephan body weight in kilograms 51 kg O2 % BldC Oximetry 97 % Ra 05/10/2019 8:34am BP Systolic 139 mmHg BP Diastolic 75 mmHg Body Temperature 98.1 F Heart Rate 70 /min Height 62.5 inches 5'2.50" Weight 232.00 lb BMI (Body Mass Index) 41.8 kg/m2 BSA (Body Surface Area) 2.05 m2 Stephan body weight in kilograms 51 kg O2 % BldC Oximetry 99 % Results Test Date Facility Test Result H/L Range Note Laboratory test 04/02/2019 [facility] Sedimentation Rate 48 mm/hr High 2-45 1 , 2 finding [address] [place], [place] [id number] [phone] C-Reactive Protein,Quant 4.3 mg/L High <3.0 Stool Fecal Fat QL 04/02/2019 [facility] Fats, Neutral Normal . 3 [address] [place], [place] [id number] [phone] Fats, Total Normal . 4 Stool Panel 04/02/2019 [facility] O&P Ova & Parasite Exam <pending> [address] [place], [place] [id number] [phone] C. Difficile Toxin B by PCR NEGATIVE Negative 5 Laboratory test 04/02/2019 [facility] Pancreatic 490.0 ug/g >200 [address] Elastase (Pe-1) [place], [place] [id number] [phone] Calprotectin, Fecal < 16 ug/g 0-120 7 Amylase 50 U/L Normal 25-115 Lipase 81 U/L Normal 56-289 Enteric 04/02/2019 [facility] Campylobacter SP NEGATIVE Negative Pathogens [address] PCR Panel, PCR [place], [place] [id number] [phone] E. coli Stec PCR NEGATIVE Negative 8 Shigella Sp. PCR NEGATIVE Negative Salmonella Sp. PCR NEGATIVE Negative 9 Ova And 04/02/2019 [facility] Cryptosporidium, PCR NEGATIVE Negative Parasite [address] Screen, PCR [place], [place] [id number] [phone] Giardia PCR NEGATIVE Negative 10 IBD Expanded Panel 04/02/2019 [facility] Julianna 23 units 0-[address] [place], [place] [address] [phone] Acca 23 units 0-90 12 Alca 4 [...] Abnormal Repeat as clinically indicated Performed at: [address] [id number] Audit Lead: Martha Vincent MD, Phone: [phone] Performed at: [address] [id number] Audit Lead: Brandi Lamas MD, Phone: [phone] 8 Shiga-toxin producing E. coli (STEC). 9 [...] developed and its performance characteristics determined by [facility]. It has not been cleared or approved by the Food and Drug Administration. The FDA has determined that such clearance or approval is not necessary. 15 Pattern is not suggestive of Inflammatory Bowel Disease Procedures Date Code Description Status 05/10/2019 97598 Asp/Injection small joint/bursa (ie-fingers,toes) Completed 04/20/2019 38069 Colonoscopy With Biopsy Completed 04/20/2019 77607 Colonoscopy With Biopsy Completed 04/20/2019 51879 EGD With Biopsy Completed 04/20/2019 46962 EGD With Biopsy Completed 03/24/2019 35489 Eye Exam New Patient Comprehensive Completed 03/22/2019 25668 Anoscopy Completed 02/18/201961012 Asp./Injection major joint Completed 02/18/201968269 Asp./Injection major joint Completed 02/18/2019 94609 Radiology, Knee 3 Views Completed 02/18/2019 Asp./Injection major joint Completed 02/18/2019 Asp./Injection major joint Completed 02/18/2019 04945 Radiology, Knee 3 Views Completed 01/21/2019 74110 Destruct-Skin Tags/Lesions-Local Anesthesia - First Completed Lesion 11/16/2018 Asp./Injection major joint Completed 11/15/2018 66848 ECHO Transthoracic Inc Performance Continuous Completed Electrocardio 12/21/2017 07263830 Mammogram Completed 05/11/2014 29282685 Colonoscopy Completed Medical Devices Description No Information Available Encounters Type Date Location Provider Dx Diagnosis Office Visit 04/25/2019 Family Elidia Reardon, Z04.2 Encounter for exam 8:30a Kirk Tripathi MD, PHD and observation following work accident Z04.2 Encounter for exam [...] of colonic polyps Office Visit 02/21/2019 9:30a [facility] Leslye, Z04.2 Encounter for exam Kirk Brenner MD, and observation PHD following work accident Z04.2 Encounter for exam and observation following work accident S01.91xA Laceration w/o foreign body of unsp part of head, init S01.91xA Laceration w/o foreign body of unsp part of head, init F07.81 Postconcussional syndrome F07.81 Postconcussional syndrome I10 Essential (primary) hypertension I10 Essential (primary) hypertension Office Visit 01/21/2019 3:00p [facility] Leslye, 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 Brenner MD, uncertain PHD behavior, unspecified K58.0 Irritable bowel syndrome with diarrhea R10.11 Right upper quadrant pain I10 Essential (primary) hypertension G43.909 Migraine, unsp, not intractable, without status migrainosus L30.9 Dermatitis, unspecified Assessments Date Code Description Provider 05/17/2019 R19.4 Change in bowel habit Arnaldo Castellon MD 05/17/2019 Z86.010 Personal history of colonic polyps Arnaldo Castellon MD 05/17/2019 R93.3 Abnormal findings on diagnostic imaging Arnaldo Castellon MD of other parts of digestive tract 05/10/2019 M18.11 Unilateral primary osteoarthritis of Isabel Ngo, [facility] first carpometacarpal j 04/25/2019 Z04.2 Encounter for [...] PHD 02/18/2019 M25.561 Pain in right knee Ngo, Isabel S., [facility] 02/18/2019 M25.561 Pain in right knee Ngo, Isabel S., [facility] 02/18/2019 M25.562 Pain in left knee Ngo, Isabel S., [facility] 02/18/2019 M25.562 Pain in left knee Ngo, Isabel S., [facility] 02/18/2019 M17.0 Bilateral primary osteoarthritis of knee Ngo, Isabel S. , [facility] 02/18/2019 M17.0 Bilateral primary osteoarthritis of knee Ngo, Isabel S. , [facility] 02/18/2019 M17.0 Bilateral primary osteoarthritis of knee Ngo, Isabel S. 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, Elidia Gavin MD, PHD unspecified 01/21/2019 K58.0 Irritable bowel syndrome with diarrhea Elidia Gavin MD , PHD 01/21/2019 R10.11 Right upper quadrant pain Elidia Gavin MD, PHD 01/21/2019 I10 Essential (primary) hypertension Elidia Gavin MD, PHD 01/21/2019 G43.909 Migraine, unspecified, not intractable, Elidia Gavin MD, PHD without status migra 01/21/2019 L30.9 Dermatitis, unspecified Elidia Gavin MD, PHD 11/16/2018 M17.0 Bilateral primary osteoarthritis of knee Isabel Ngo , [facility] 11/16/2018 M25.562 Pain in left knee Isabel Ngo, [facility] 11/16/2018 M25.561 Pain in right knee Isabel Ngo, [facility] 11/15/2018 R07.9 Chest pain, unspecified MariaI nes Toth MD 11/15/2018 R01.1 Cardiac murmur, unspecified Maria Ines Toth MD Plan of Treatment Future Appointment(s):05/24/2019 1:00 pm - Elidia Gavin MD, PHD at [facility]06/27/2019 2:15 pm - Arnaldo Loyd MD at [facility]/17/ 2019 - Arnaldo Castellon, MDR19.4 Change in bowel habitComments:normal colon and small boweluse lactaid evmluhA89.010 Personal history of colonic polypsComments: colonoscopy was normal 10 year svlshoaaifmjI01.3 Abnormal findings on diagnostic imaging of other parts of digestive tractComments:question of right kidney stonePMD will assess and follow as needed Functional Status Functional Condition Comment Date Status Glasses Active Mental Status Description No Information Available Referrals Refer to Reason for Referral Status Appt Date Created Arnaldo Loyd MD Post-concussion 1 month. Still having headaches. Closed Gets nauseated if reads for 30 min - with old reading glasses. Denies double vision. Please evaluate and recommend treatment. Has not done OT therapy yet. [address] [place] [address] [phone] Concussion Clinic @ [facility] Concussion from work comp injury Closed 2018 Medical - continuing daily headaches, face trauma, still nauseated if reads for 30 min, chronic back pain seeing [facility]. Neck still sore. [address] [facility] [place] [address] [phone] [facility] Recent fall at work seems to have Closed 2018 worsened lumbar herniated disk and radiculopathy. [address] [place] [address] [phone] Love Lomax MD pink lesion on face persisting for aprox 1 Closed 2018 year. Hx dermatitis. [facility] [address] [place] [address] [phone] Arnaldo Castellon MD Persistent RUQ pain and IBS-D - neg for celiac, Closed 03/22/2019 neg for h.pylori, H/o ishmael many years ago. Atopic. Tried eliminating dairy. [address] [facility] [address] [place] [address] [phone]
--- NOTE | 2019-07-09 19:11 | UC ---
General HPI - HPI Summary HPI Summary: 54 yo female c/o L ant neck pain x all day today. 2 days ago underwent physical therapy for neck problems, PT massaged ant neck. Now feels pain and bump and swelling. No fever / chills. Some runny nose, scratchy throat. No rash. Some L ear pain. No GI / / vis / aud changes. No rash. Sign pmh - s/p concussion, neck injury, facial injury s/p fall January 2019. Has been following with concussion clinic in [place]. Just started PT this week. - History of Current Complaint Stated Complaint: ALLERGY SYMPTOMS,ST/RUNNY NOSE Time Seen by Provider: 07/09/19 19:11 Hx Obtained From: Patient - Allergy/Home Medications Allergies/Adverse Reactions: Allergies Allergy/AdvReac Type Severity Reaction Status Date / Time ibuprofen Allergy See Comment Verified 07/09/19 19:21 morphine Allergy See Comment Verified 07/09/19 19:21 Sulfa (Sulfonamide Allergy See Comment Verified 07/09/19 19:21 Antibiotics) Home Medications: Home Medications Propranolol TAB* [Inderal TAB*] 60 mg PO BID 07/09/19 [History Confirmed ] Spironolactone TAB* [Aldactone TAB*] 25 mg PO DAILY 07/09/19 [History Confirmed 07/09/19] PMH/Surg Hx/FS Hx/Imm Hx Previously Healthy: Yes - however, see hpi - Surgical History Surgical History: Yes Surgery Procedure, Year, and Place: 1981 WISDOM TEETH EXTRACTION, [facility]. 1994 C SECTION, [facility]. 1995 LAPAROSCOPIC CHOLECYSTECTOMY, [facility]. 2006,2007, 210, VARICOSE VEIN SURGERY. 2011 BILATERAL VARICOSE VEIN SURGERY, [facility]. 2010 ENDOMETRIAL ABLATION, [facility]. 2014 COLONOSCOPY, [facility] - Family History Known Family History: Positive: Unknown Negative: Renal Disease - Social History Alcohol Use: None Substance Use Type: None Smoking Status (MU): Never Smoked Tobacco - Immunization History Most Recent Influenza Vaccination: allergic to flu shot Hx Tetanus, Diphtheria Vaccination: Yes Vaccination Up to Date: Yes Review of Systems All Other Systems Reviewed And Are Negative: Yes Constitutional: Positive: Fatigue Skin: Positive: Negative Eyes: Positive: Negative ENT: Positive: Other - see hpi Respiratory: Positive: Negative Cardiovascular: Positive: Negative Gastrointestinal: Positive: Negative Genitourinary: Positive: Negative Motor: Positive: Negative Neurovascular: Positive: Negative Musculoskeletal: Positive: Negative Neurological: Positive: Negative Psychological: Positive: Negative Is Patient Immunocompromised?: No Physical Exam Triage Information Reviewed: Yes Appearance: Well-Appearing - sitting up, conversing easily, Well-Nourished Vital Signs Reviewed: Yes Eye Exam: Normal ENT Exam: Other ENT: Positive: Other - mild post pharyng redness, no sores / exudates, uvula midline TM L + dried blood on TM, TM intact (c/w trauma), minimal cerumen in eac TM R muñoz, rtx'd. EAC mild redness (c/w trauma) Neck: Positive: Supple, Other: - Tender and + submand adenopathy L Respiratory Exam: Normal Respiratory: Positive: Chest non-tender, Lungs clear, Normal breath sounds, No respiratory distress, No accessory muscle use Cardiovascular Exam: Normal Cardiovascular: Positive: RRR, No Murmur, Pulses Normal, Brisk Capillary Refill Abdominal Exam: Normal Abdomen Description: Positive: Nontender Musculoskeletal Exam: Normal - gait steady, moves x 4 ext's. Detailed rom not eval'd. Neurological Exam: Normal - grossly nonfocal; however detailed exam not performed Psychological Exam: Normal - conversing easily and appropriately Skin Exam: Normal - no visible or reported rash nondiaphoretic. Course/Dx - Course Course Of Treatment: RST negative. d/w pt coa / tx plan. 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 Encourage f/u pcp as she plans. Seek medical attention for worse or new problems. Questions as posed answered to the best of my ability. - Diagnoses Provider Diagnosis: Adenopathy Discharge ED - Sign-Out/Discharge Documenting (check all that apply): Patient Departure All imaging exams completed and their final reports reviewed: No Studies - Discharge Plan Condition: Stable Disposition: HOME Patient Education Materials: Lymphadenopathy (ED) Referrals: Amparo Ortiz MD [Primary Care Provider] - Additional Instructions: Follow up with your primary care physician, this week if possible. Please seek medical attention for worse or new problems. Hydrate. Hold off PT this week. Blood work has been sent. - Billing Disposition and Condition Condition: STABLE Disposition: Home
[2019-07-09 19:19] VITALS: BP 147/87
[2019-07-10 10:51] LABS: Hematocrit 44 % (35-47); Hemoglobin 14.3 g/dL (12.0-16.0); Mean Corpuscular HGB Conc 33 g/dL (31-36); Mean Corpuscular Hemoglobin 28 pg (27-31); Mean Corpuscular Volume 86 fL (80-97); Mean Platelet Volume 7.6 fL (7.4-10.4); Platelet Count 279 10^3/uL (150-450); Red Blood Count 5.05 10^6 /uL (3.70-4.87); Red Cell Distribution Width 15 % (10-15); White Blood Count 11.5 10^3/uL (3.5-10.8)
[2019-07-10 10:54] LABS: ABS Eosinophils 0.2 10^3/ul (0-0.6); ABS Lymphocytes 2.6 10^3/ul (1.0-4.8); ABS Monocytes 0.6 10^3/ul (0-0.8); Eosinophil % 1.4 %; Lymphocyte % 22.9 %; Nucleated Red Blood Cells % 0.1
[2019-07-10 10:57] LABS: Calcium 9.8 mg/dL (8.6-10.3); Potassium 3.9 mmol/L (3.5-5.0)
[2019-07-10 11:03] LABS: C Reactive Protein 2.72 mg/L (<8.01); EGFR African American 72.7 (>60); EGFR Non-African American 60.1 (>60)
[2019-07-10 11:16] LABS: TSH (Thyroid Stimulating Horm) 2.64 mcIU/mL (0.34-5.60)
--- NOTE | 2019-07-11 07:25 | UC ---
- Progress Note Progress Note: Lab work comes back from July 09, 2019. White blood cell count is elevated at 11.5 thousand normal range is 3.5-10.8. Glucose was elevated 114 normal is 70-100. Creatinines elevated 0.96 normal is 0.51 to 0.95. Monospot was negative TSH and CRP were both normal. Patient was seen for lymphadenopathy and recommended follow-up within a week with her primary care doctor. Nursing to call patient inform the patient of the results. Patient to continue symptomatically treatment and if the lymphadenopathy in her condition have not completely resolved she should follow up with her doctor as recommended within a week. Course/Dx - Diagnoses Provider Diagnoses: Adenopathy Discharge ED - Sign-Out/Discharge Documenting (check all that apply): Patient Departure All imaging exams completed and their final reports reviewed: No Studies - Discharge Plan Condition: Stable Disposition: HOME Patient Education Materials: Lymphadenopathy (ED) Referrals: Amparo Ortiz MD [Primary Care Provider] - Additional Instructions: Follow up with your primary care physician, this week if possible. Please seek medical attention for worse or new problems. Hydrate. Hold off PT this week. Blood work has been sent. - Billing Disposition and Condition Condition: STABLE Disposition: Home
[2019-07-12 11:27] LABS: EBV Capsid Ag IgG Ab Positive (Negative); EBV Capsid Ag IgM Ab Negative (Negative); Epstein-Barr Nuclear Antigen Positive (Negative)
== END 2019-07-09 20:46 | disposition home or self-care (01) ==
LOC: UCCORT 18:34
DX: R59.0 Localized enlarged lymph nodes (principal); R53.83 Other fatigue; Z88.2 Allergy status to sulfonamides; Z88.5 Allergy status to narcotic agent; Z88.6 Allergy status to analgesic agent
CPT/HCPCS: 36415; 80048; 84443; 85025; 86140; 86308; 86664; 86665; 87651; 99211; G0463